=== PATIENT | female | born 1990 | race Caucasian/White ===

== ENCOUNTER 2019-04-27 02:45 | Observation (INO) | payer SELFPAY ==
[2019-04-26 16:33] VITALS: BMI 33.7
[2019-04-26 17:13] LABS: Protein, Urine (Random) 12.6 mg/dL (<11.9); Protein:Creat Ratio 129 mg/g CRE (0-200)
--- NOTE | 2019-04-26 17:35 | US_ITS ---
STUDY: SECOND AND THIRD TRIMESTER OBSTETRICAL ULTRASOUND - TWIN REASON FOR EXAM: Female, 28 years old. LMP: Unknown. TECHNIQUE: Transabdominal TECHNICAL QUALITY: Adequate. COMPARISON: None. FINDINGS: There are two intrauterine fetuses. The amniotic membrane cannot be visualized. There is a normal amniotic fluid volume within each amniotic sac. The uterine wall is normal. The cervix was not visualized. Fetus a is in breech presentation tilted toward the maternal left. A grade 2 placenta is noted. a heart rate is 128 bpm. The TEETEE is within normal limits. The largest measured fluid pocket is 3.6 x 3.3 cm. The combined TEETEE is 13.07 cm. There is a posterior not low lying placenta. FETUS A BIOMETRY: BPD: 8.58 cm: 34 weeks, 5 days HC: 31.78 cm: 35 weeks, 6 days AC: 33.19 cm: 37 weeks, 1 days FL: 6.97 cm: 35 weeks, 6 days CI: 78% FL/BPD: 77% FL/AC: 21% HC/AC: 1.03 age by current US: 36 weeks, 0 days. SRI by current US: 05/24/2019. Estimated weight: 2909 grams, +/- 425 grams, 28 %. Age by LMP: 37 weeks, 4 days. SRI by LMP: 05/13/2019. FETUS B BIOMETRY: Fetus B is in cephalic presentation. Fetus B heart rate is 146 bpm. There is an anterior not low lying placenta. The placenta is grade 2. BPD: 8.89 cm: 36 weeks, 0 days HC: 33.81 cm: 38 weeks, 6 days AC: 32.87 cm: 36 weeks, 6 days FL: 6.3 cm: 35 weeks, 1 days CI: 78% FL/BPD: 77% FL/AC: 21% HC/AC: 1.03 age by current US: 36 weeks, 5 days. SRI by current US: 05/19/2019. Estimated weight: 2946 grams, +/- 430 grams, 31 %. Age by LMP: 37 weeks, 4 days. SRI by LMP: 05/13/2019. US/OB Limited With Biometrics IMPRESSION: Twin uterine as detailed above. Electronically Signed: Eliot Crespo MD at 21:20 EDT , Service support ,
[2019-04-26 18:02] VITALS: BMI 33.7
[2019-04-26 18:22] LABS: Mucous, Urine 0 SEEN /hpf (<or=2+); Red Blood Cells-Urine 0 SEEN /hpf (0-5)
[2019-04-26 18:27] LABS: Absolute Lymphocyte Count 1.43 X10^3/uL (0.83-4.51); Absolute Neutrophil Count 7.2 X10^3/uL (2.0-7.7); Basophil# 0.01 X10^3/uL; Basophil% 0.1 % (0-1); Eosinophil# 0.03 X10^3/uL; Eosinophils% 0.3 % (0-5); Hematocrit 37.7 % (37-47); Hemoglobin 11.9 g/dL (12.0-15.0); Lymphocyte # 1.43 X10^3/ul (4.0); Lymphocyte % 15.5 % (19-41); Mean Corp Hgb Conc 31.6 g/dL (32-36); Mean Corpuscular Hgb 28.1 pg (27.0-32.0); Mean Corpuscular Volume 88.9 fL (81-99); Mean Platelet Vol. 10.8 fl (6.2-12.0); Monocyte# 0.55 X10^3/uL; Monocyte% 5.9 % (0-10); NRBC Flagged by Analyzer 0 % (0-5); Neutrophil # 7.19 X10^3/uL (2.7-7.7); Neutrophil % 77.8 % (47-70); POSITIVE MORPHOLOGY YES; Platelet Count 182 K/mm3 (150-450); RBC Distribution Width CV 20.1 % (11.6-14.6); RBC Distribution Width SD 64.3 fl (35.1-43.9); Red Blood Count 4.24 M/mm3 (4.2-5.4); White Blood Count 9.3 K/mm3 (4.4-11.0)
[2019-04-26 18:29] LABS: Differential Indicated SCAN CRITERIA MET
[2019-04-26 18:30] LABS: Color, Urine Yellow (Yellow); Glucose, Dipstick Normal (Normal); Ketone-Dipstick 50 mg/dl (Negative); Leukocyte Esterase-Dipstick 25 /ul (Negative); Nitrite-Dipstick Negative (Negative); Occult Blood-Urine Negative /ul (Negative); Protein-Dipstick 15 mg/dl (Negative); Urine Bilirubin Dipstick Negative (Negative); Urine Clarity Sl. Cloudy (Clear); Urine Urobilinogen Normal (Normal)
[2019-04-26 18:34] LABS: International Normalized Ratio 0.9; Prothrombin Time (Protime)PT. 12.3 SECONDS (11.7-14.9)
[2019-04-26 18:35] LABS: Partial Thromboplast Time 25.1 Seconds (24.1-36.2)
[2019-04-26 18:48] LABS: Bacteria 1+ /hpf (None Seen); Differential Comment SCANNED; Squamous Epithelial Cells - UA 10-25 SEEN /hpf (5-10); White Blood Cells 0-5 SEEN /hpf (0-5)
[2019-04-26 19:00] LABS: AST(SGOT) 14 U/L (15-37); Alanine Aminotransfer ALT/SGPT 11 U/L (13-56); Creatinine, Serum 0.74 mg/dL (0.55-1.02); EST Glomerular Filtration Rate 100 mL/min (>60); Est Glom Filt Rate - Afr Amer 121 mL/min (>60); Estimated Creatinine Clearance 123.49 ml/min; Uric Acid 6.9 mg/dL (2.6-6.0)
[2019-04-26 19:21] LABS: Rubella IgG 127.8 IU/mL
[2019-04-26 20:05] LABS: Group B Strep DNA By PCR Negative (Negative); Internal Control PASS; Probe Check PASS; Specimen Processing Control PASS
[2019-04-26] MEDS: Betamethasone/Betamethasone 30 MG/5 ML Vial 12 MG IM (20:14)
[2019-04-26 21:58] LABS: Chlamydia Trachomatis by PCR Negative (Negative); Neisserai gonorrhoeae by PCR Negative (Negative); Probe Check PASS; Sample Adequacy Control PASS; Specimen Processing Control PASS
--- NOTE | 2019-04-27 02:42 | PCM.HPOB.BLA ---
- Problem List (1) Dichorionic diamniotic twin in third trimester Status: Acute (2) Gestational hypertension affecting fifth Status: Acute (3) Limited care in third trimester Status: Acute (4) Multiple gestation with one or more malpresentations in third trimester Status: Acute History and Physical Date of Admission: 04/26/19 4815 Documentfor Visit Date: 04/26/19 Intake Vital Signs 04/26/19 Height 5 ft 10 in 04/26/19 Weight: 235 lb 04/26/19 Body Mass Index (BMI) 33.7 04/26/19 Blood Pressure 142/90 H Intake Visit Reasons: 36 WK OB (twins), Yue Negron pt, Ok per SM Chief Complaint: est ob, Yue Negron 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 Is patient in pain?: No Allergies No Known Allergies Allergy (Verified 04/26/19 22:55) Medications ferrous sulfate 325 mg (65 mg iron) tablet 325 mg PO DAILY 04/26/19 [History Confirmed 04/26/19] Last Menstral Period: 08/06/18 Zika: Zika virus screening: Negative [facility] Family History (Updated 04/26/19 @ 16:37 by Anu Obrien) Grandmother Heart disease Myocardial infarction Social History (Updated 04/27/19 @ 02:42 by Suellen Barrientos MD) Smoking Status: Never smoker alcohol intake: never substance use type: does not use what type of physical activity do you participate in: walking seatbelt use: always do you feel safe at home: Yes HPI 36 WK OB (twins), Yue Negron pt, Ok per SM: Details: RENETTA BENAVIDES is a 28 year old who presents for routine OB visit. she is transferring care here due to twins and malpresentation. she denies any bleeding or lof. it was previously unknown for her to be with twins. she is fairly sure of her LMP but not absolute. OB Visit SRI Calculator Estimated Delivery Date Method Current WG Current Estimate 05/13/19 LMP (Certain) 37w 5d # 2 Expected Delivery Route/Plan LTCS for Breech/Trv Specific Issue/Plans flu vaccine: declined tdap vaccine: didn't receive rhogam: na LARC form signed: Problem list reviewed and updated with the most current plan of care details and appropriate orders placed. Relevant counseling for the gestational age provided. Continue routine care and follow up unless otherwise noted in visit notes/problem list details Initial Weight: Not Recorded Date EGA Weight BP Urine Prot Glucose FHR FuHt Pres Mov CTX Dilation Effaced St Visit Note 04/26/19 37w 4d 235 lb 142/90 Negative Negative A 130 B 140 A Breech B Transverse A B A B A SAMI twins- elevated bp today. recommend evaluation on l and d. B Visit Notes Visit Date: 04/26/19 SAMI twins- elevated bp today. recommend evaluation on l and d. Suellen Barrientos MD on 04/26/19 Diagnostics Diagnostics Diagnostics Blood Type O POSITIVE 04/26/19 Antibody Screen NEGATIVE 04/26/19 HIV 1&2 Antibody Pending 04/26/19 Group B Strep DNA Negative (Negative) 04/26/19 Rubella IgG Antibody 127.8 IU/mL 04/26/19 Hgb 11.9 g/dL (12.0-15.0) L 04/26/19 Hct 37.7 % (37-47) 04/26/19 RPR Pending 04/26/19 Details: HIV: Urine Culture: Sequential Screen: NIPT Screen: ROS Const Reports system reviewed and no additional complaints, except as docu Card Reports system reviewed and no additional complaints, except as docu Resp Reports system reviewed and no additional complaints, except as docu GI Reports system reviewed and no additional complaints, except as docu, Reports nausea Reports system reviewed and no additional complaints, except as docu Musc Reports system reviewed and no additional complaints, except as docu Exam Const General: cooperative, healthy appearing, comfortable, anxious [facility] Head: normal to inspection Nose: external nose normal Face and sinus: normal facial exam Neck Neck: normal visual inspection, full ROM, no lymphadenopathy Thyroid: thyroid normal Chest Chest palpation & inspection: normal inspection of the chest Resp Effort & Inspection: normal respiratory effort GI Inspection: normal to inspection Palpation: soft, other (gravid uterus) Other: Cervical Exam: Extrem General: pedal edema Results [id number] Office Urine Glucose Negative Last Edit by Anu Obrien on 04/26/19 16:52 Office Urine Protein Negative Last Edit by Anu Obrien on 04/26/19 16:52 Assessment & Plan Problems 1. Gestational hypertension affecting fifth O13.9; O09.40 2. Dichorionic diamniotic twin in third trimester O30.043 3. Limited care in third trimester O09.33 4. Multiple gestation with one or more malpresentations in third trimester O30.93; O32.9XX0 Plan plan evaluation on l and d- admit for monitoring and labs. ultrasound evaluation of twins showing they are measuring 36 and 36w5d in malpresentation, discussed with infant caregiver and recommend celestone for late care with borderline presentation, plan delivery after 2 doses of bmz if remains stable. plan LTCS. Orders Orders: POC Urinalysis 2 Dip (Clinic) 04/26/19 Comprehensive Metabolic Profil 04/26/19 O16.9 CBC W/Diff, Automated 04/26/19 O16.9 Protein+Creatinine Ratio,Urine 04/26/19 O16.9 Coding Level of Care Code Off vis,new,level 4 Diagnoses Gestational hypertension affecting fifth O13.9; O09.40 Dichorionic diamniotic twin in third trimester O30.043 Limited care in third trimester O09.33 Multiple gestation with one or more malpresentations in third trimester O30.93; O32.9XX0 Renetta Benavides 28 F 1990 5ft 10in 235lb BSA:2.24m? BMI Percentile:33.7% Visit Date: 04/26/19 Room 2 Search Chart Onset Estimated Delivery Date Based on LMP (Certain) Current WG Number No data to display Medical History No Medical Problems Surgical History No Surgical Problems Family History Heart disease Grandmother Myocardial infarction Grandmother Social History what type of physical activity do you participate in walking Smoking Status Never smoker alcohol intake never substance use type does not use seatbelt use always do you feel safe at home Yes [place] 320 Problems Gestational hypertension affecting fifth Dichorionic diamniotic twin in third trimester Limited care in third trimester Multiple gestation with one or more malpresentations in third trimester Plan
[2019-04-27 10:30] LABS: HIV - WCH Non-Reactive (Nonreactive); Hepatitis B Surface Antigen Non-Reactive (Nonreactive)
[2019-04-27] MEDS: Betamethasone/Betamethasone 30 MG/5 ML Vial 12 MG IM (12:03)
[2019-04-30 01:54] LABS: Rapid Plasmin Reagin (RPR) NONREACTIVE (NONREACTIVE)
== END 2019-04-27 12:34 | disposition home or self-care (01) ==
LOC: WPOUT 10:19
PROVIDERS: Admitting Provider Obstetrics & Gynecology; Referring Provider Obstetrics & Gynecology; Visit Provider Obstetrics & Gynecology
PROC: (CPT 59514; principal; 2019-04-28 12:15)
DX: O30.043 Twin pregnancy, dichorionic/diamniotic, third trimester (principal); Z3A.37 37 weeks gestation of pregnancy; O16.3 Unspecified maternal hypertension, third trimester; O09.33 Supervision of pregnancy with insufficient antenatal care, third trimester; O32.9XX0 Maternal care for malpresentation of fetus, unspecified, not applicable or unspecified
CPT/HCPCS: 36415; 59025; 59050; 76816; 81001; 82565; 82570; 84156; 84450; 84460; 84550; 85025; 85610; 85730; 86592; 86703; 86762; 86850; 86900; 86901; 87081; 87340; 87491; 87591; 87653; 96372; 99218; G0378; J0702

== ENCOUNTER 2019-04-28 09:49 | Inpatient (IN) | payer SELFPAY ==
[2019-04-26 18:02] VITALS: BMI 33.7
[2019-04-28] VITALS (19 sets, daily range): BP systolic 119–143; BP diastolic 56–87; PULSE 57–86; RESP 14–21; TEMP 36.3–37.1; O2SAT 97–100; BMI 34.0
[2019-04-28] MEDS: Lactated Ringers 1,000 ML 999 ML IV (10:35)
[2019-04-28 10:51] LABS: Absolute Lymphocyte Count 1.46 X10^3/uL (0.83-4.51); Absolute Neutrophil Count 8.7 X10^3/uL (2.0-7.7); Basophil# 0.02 X10^3/uL; Basophil% 0.2 % (0-1); Hematocrit 37.4 % (37-47); Hemoglobin 11.6 g/dL (12.0-15.0); Lymphocyte # 1.46 X10^3/ul (4.0); Lymphocyte % 13.2 % (19-41); Mean Corpuscular Hgb 27.4 pg (27.0-32.0); Mean Corpuscular Volume 88.4 fL (81-99); Monocyte# 0.71 X10^3/uL; Monocyte% 6.4 % (0-10); NRBC Flagged by Analyzer 0 % (0-5); Neutrophil # 8.69 X10^3/uL (2.7-7.7); Neutrophil % 78.5 % (47-70); POSITIVE MORPHOLOGY YES; Platelet Count 194 K/mm3 (150-450); RBC Distribution Width CV 20.3 % (11.6-14.6); RBC Distribution Width SD 64.3 fl (35.1-43.9); Red Blood Count 4.23 M/mm3 (4.2-5.4); White Blood Count 11.1 K/mm3 (4.4-11.0)
[2019-04-28 10:53] LABS: Differential Indicated SCAN CRITERIA MET
[2019-04-28 11:29] LABS: Anisocytosis 2+; Crenated RBC 1+
[2019-04-28] MEDS: Lactated Ringers 1,000 ML 150 ML IV (11:37)
--- NOTE | 2019-04-28 11:55 | HP.PCM_ITS ---
- Problem List (1) Dichorionic diamniotic twin in third trimester Status: Acute (2) Gestational hypertension affecting fifth Status: Acute (3) Limited care in third trimester Status: Acute (4) Multiple gestation with one or more malpresentations in third trimester Status: Acute History and Physical Date of Admission: 04/28/19 LIVE [facility] H&P - OBGYN (Blank) Patient Name: RENETTA BENAVIDES Date of : [birth year] Patient Status: Observation Attending Provider: Suellen Barrientos Date: 04/27/19 02:42 Initialization Date: 04/27/19 02:42 Addendum entered and electronically signed by Suellen Barrientos MD 04/27/19 18:05: Code Visit patient stable, bps normal to mildly elevated. second dose of celestone given and will discharge home and fu tomorrow for primary . OBSV E&M: 74504 Observ/hosp same date L3 Original Note: - Problem List (1) Dichorionic diamniotic twin in third trimester Status: Acute (2) Gestational hypertension affecting fifth Status: Acute (3) Limited care in third trimester Status: Acute (4) Multiple gestation with one or more malpresentations in third trimester Status: Acute History and Physical Date of Admission: 04/26/19 4815 Documentfor Visit Date: 04/26/19 Intake Vital Signs 04/26/19 Height 5 ft 10 in 04/26/19 Weight: 235 lb 04/26/19 Body Mass Index (BMI) 33.7 04/26/19 Blood Pressure 142/90 H Intake Visit Reasons: 36 WK OB (twins), Yue Negron pt, Ok per SM Chief Complaint: est ob, 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 Is patient in pain?: No Allergies No Known Allergies Allergy (Verified 04/26/19 22:55) Medications ferrous sulfate 325 mg (65 mg iron) tablet 325 mg PO DAILY 04/26/19 [History Confirmed 04/26/19] Last Menstral Period: 08/06/18 Zika: Zika virus screening: Negative [facility] PFS Family History (Updated 04/26/19 @ 16:37 by Anu Obrien) Grandmother Heart disease Myocardial infarction Social History (Updated 04/27/19 @ 02:42 by Suellen Barrientos MD) Smoking Status: Never smoker alcohol intake: never substance use type: does not use what type of physical activity do you participate in: walking seatbelt use: always do you feel safe at home: Yes HPI 36 WK OB (twins), Yue Negron pt, Ok per SM: Details: RENETTA BENAVIDES is a 28 year old who presents for routine OB visit. she is transferring care here due to twins and malpresentation. she denies any bleeding or lof. it was previously unknown for her to be with twins. she is fairly sure of her LMP but not absolute. OB Visit SRI Calculator Estimated Delivery Date Method Current WG Current Estimate 05/13/19 LMP (Certain) 37w 5d # 2 Expected Delivery Route/Plan LTCS for Breech/Trv Specific Issue/Plans flu vaccine: declined tdap vaccine: didn't receive rhogam: na LARC form signed: Problem list reviewed and updated with the most current plan of care details and appropriate orders placed. Relevant counseling for the gestational age provided. Continue routine care and follow up unless otherwise noted in visit notes/problem list details Initial Weight: Not Recorded Date EGA Weight BP Urine Prot Glucose FHR FuHt Pres Mov CTX Dilation Effaced St Visit Note 04/26/19 37w 4d 235 lb 142/90 Negative Negative A 130 B 140 A Breech B Transverse A B A B A SAMI twins- elevated bp today. recommend evaluation on l and d. B Visit Notes Visit Date: 04/26/19 SAMI twins- elevated bp today. recommend evaluation on l and d. Suellen Barrientos MD on 04/26/19 Diagnostics Diagnostics Diagnostics Blood Type O POSITIVE 04/26/19 Antibody Screen NEGATIVE 04/26/19 HIV 1&2 Antibody Pending 04/26/19 Group B Strep DNA Negative (Negative) 04/26/19 Rubella IgG Antibody 127.8 IU/mL 04/26/19 Hgb 11.9 g/dL (12.0-15.0) L 04/26/19 Hct 37.7 % (37-47) 04/26/19 RPR Pending 04/26/19 Details: HIV: Urine Culture: Sequential Screen: NIPT Screen: ROS Const Reports system reviewed and no additional complaints, except as docu Card Reports system reviewed and no additional complaints, except as docu Resp Reports system reviewed and no additional complaints, except as docu GI Reports system reviewed and no additional complaints, except as docu, Reports nausea Reports system reviewed and no additional complaints, except as docu Musc Reports system reviewed and no additional complaints, except as docu Exam Const General: cooperative, healthy appearing, comfortable, anxious [place] Head: normal to inspection Nose: external nose normal Face and sinus: normal facial exam Neck Neck: normal visual inspection, full ROM, no lymphadenopathy Thyroid: thyroid normal Chest Chest palpation & inspection: normal inspection of the chest Resp Effort & Inspection: normal respiratory effort GI Inspection: normal to inspection Palpation: soft, other (gravid uterus) Other: Cervical Exam: Extrem General: pedal edema Results [id number] Office Urine Glucose Negative Last Edit by Anu Obrien on 04/26/19 16:52 Office Urine Protein Negative Last Edit by Anu Obrien on 04/26/19 16:52 Assessment & Plan Problems 1. Gestational hypertension affecting fifth O13.9; O09.40 2. Dichorionic diamniotic twin in third trimester O30.043 3. Limited care in third trimester O09.33 4. 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 plan LTCS. Orders Orders: POC Urinalysis 2 Dip (Clinic) 04/26/19 Comprehensive Metabolic Profil 04/26/19 O16.9 CBC W/Diff, Automated 04/26/19 O16.9 Protein+Creatinine Ratio,Urine 04/26/19 O16.9 Coding Level of Care Code Off vis,new,level 4 Diagnoses Gestational hypertension affecting fifth O13.9; O09.40 Dichorionic diamniotic twin in third trimester O30.043 Limited care in third trimester O09.33 Multiple gestation with one or more malpresentations in third trimester O30.93; O32.9XX0 Renetta Benavides 28 F 1990 5ft 10in 235lb BSA:2.24m? BMI Percentile:33.7% Visit Date: 04/26/19 Room 2 Search Chart Onset Estimated Delivery Date Based on LMP (Certain) Current WG Number No data to display Medical History No Medical Problems Surgical History No Surgical Problems Family History Heart disease Grandmother Myocardial infarction Grandmother Social History what type of physical activity do you participate in walking Smoking Status Never smoker alcohol intake never substance use type does not use seatbelt use always do you feel safe at home Yes [place] 320 Problems Gestational hypertension affecting fifth Dichorionic diamniotic twin in third trimester Limited care in third trimester Multiple gestation with one or more malpresentations in third trimester Plan LTCS for delivery
--- NOTE | 2019-04-28 11:56 | OP.PCM_ITS ---
Problem List (1) Dichorionic diamniotic twin in third trimester Status: Acute (2) Gestational hypertension affecting fifth Status: Acute (3) Limited care in third trimester Status: Acute (4) Multiple gestation with one or more malpresentations in third trimester Status: Acute Delivery Classification: Scheduled Final SRI: 05/13/19 Gestational age: 37 Weeks and 6 Days Type of Anesthesia:: Spinal Special Medications: none Implants Used: none Date of Procedure: 04/28/19 Pre-Operative Diagnosis: gestational hypertension twins malpresentation Post-Operative Diagnosis: same Indications for : Malpresentation, Multiple Gestation Description of Procedure: The patient is a 28-year-old at 37 and 6 with gestational hypertension di-di-twins presented for primary secondary to presentation . Spinal anesthesia was placed without difficulty. Daly catheter was placed. The patient was placed in the dorsal supine position with leftward tilt. Patient was prepped and draped in the normal sterile fashion. Pfannenstiel skin incis ion was made with the scalpel and carried through to the underlying layer of fascia with the scalpel. Fascia was nicked in the midline and the incision extended laterally. The rectus bellies were dissected off superiorly and inferiorly with out complication both sharply and bluntly. The peritoneum was entered digitally. The incision was stretched and a low transverse uterine incision was made with the scalpel. Baby A's buttocks was delivered and was noted to be female followed by the right and left arms are loose nuchal cord x1 was reduced and the head delivered without complication. Delayed cord clamping was employed and then the cord was clamped and cut and the infant was taken off to waiting nurse. Membranes were ruptured on baby B which was noted to be transverse but it was converted to breech prior to rupture of membranes. Infant's feet and buttocks were delivered without complication followed by sweeping the anterior and posterior arms and flexing the head and delivering atraumatically. The cord was clamped and cut and the infant was handed off to awaiting nurse. The placenta was delivered spontaneously immediately following and was noted to be intact and have a three-vessel cord. The uterus was exteriorized cleared of all clots and debris, and the incision was closed in a double layer closure using #1 Monocryl. The ovaries and fallopian tubes were noted to be within normal limits. The uterus was returned to the maternal abdomen and gutters were cleared of all clots and debris. The peritoneum was closed with 3-0 Monocryl in a running fashion. figure of eight 1-0 monocryl stitch in the muscle was placed. Gloves were changed prior to fascial closure. Fascia was closed with 0 PDS in a running fashion. Subcutaneous tissue was copiously irrigated and the skin was closed with 3-0 Monocryl in a subcuticular fashion. Mepilex dressing was applied without complication. Patient was taken to recovery in stable condition. Amniotic Membrane Rupture Type: Artificial Amniotic Fluid Description: Clear Placenta Disposition: [facility] Cord Entanglement: Around neck x 1, loose Nuchal Cord Compression: With compression Cord Vessel Description: 3 Vessels Esitmated Blood Loss (ml): 1500 Gender: Female Delayed cord clamping: Yes Antibiotic Given: Ancef 2 grams IV x1 Pt instructed on risks of surgery: Bleeding, Anesthesia Risks, Infection Complications: None Baby B - Information Amniotic Membrane Rupture Type: Artificial Presentation: [place] Breech - Operative Information Cord Entanglement: None Cord Vessel Description: 3 Vessels B gender: Male Multi Select Codes - Urinary/Genital Urinary/Genital CPT Codes: 18410 delivery+ Care([facility]) - twins
[2019-04-28] MEDS: Sodium Citrate/Citric Acid 30 ML UDC PO (11:59)
[2019-04-28] MEDS: Cefazolin 2 GM in 0.9% Normal Saline 100 ML IV (12:08)
[2019-04-28] MEDS: Oxytocin 30 units/NS 500 ml 30 UNITS/500 ML IV.SOLN 167 UNITS IV (13:28)
[2019-04-28] MEDS: Lactated Ringers 1,000 ML 100 ML IV (16:43)
[2019-04-28] MEDS: Ketorolac 30 MG/ML Syringe IV (17:57)
[2019-04-28] MEDS: 0.9% Saline Lock 10 ML Syringe IV (17:57)
[2019-04-29] VITALS (12 sets, daily range): BP systolic 130–142; BP diastolic 73–85; PULSE 51–80; RESP 16–20; TEMP 36.4–37.2; O2SAT 97–99
[2019-04-29] MEDS: Ketorolac 30 MG/ML Syringe IV ×4 (00:04→19:35)
[2019-04-29 05:49] LABS: Hematocrit 26.8 % (37-47); Hemoglobin 8.4 g/dL (12.0-15.0); Mean Corp Hgb Conc 31.3 g/dL (32-36); Mean Corpuscular Hgb 27.8 pg (27.0-32.0); Mean Corpuscular Volume 88.7 fL (81-99); Mean Platelet Vol. 10.7 fl (6.2-12.0); Platelet Count 144 K/mm3 (150-450); RBC Distribution Width SD 63.8 fl (35.1-43.9); Red Blood Count 3.02 M/mm3 (4.2-5.4); White Blood Count 10.5 K/mm3 (4.4-11.0)
--- NOTE | 2019-04-29 06:24 | PCM.PN.OB ---
Subjective: doing well no complaints pain controlled no CP SOB N V ambulating well tolerating po lochia moderate, going well - Physical Exam General: Alert, Oriented x3 Vital Signs Temp Pulse Resp BP Pulse Ox 98.5 F 78 16 130/80 H 98 04/29/19 04:00 04/29/19 05:50 04/29/19 05:50 04/29/19 04:00 04/29/19 05:50 Oxygen Delivery Method Room Air Weight: 237 lb 3.478 oz Body Mass Index (BMI) 34.0 Intake and Output for Last 24 Hours 04/27/19 04/28/19 04/29/19 23:59 23:59 23:59 Intake Total 2367.5 / 2367.5 2033.33 / 2033.33 Output Total 250 / 250 1200 / 1200 Balance 2117.5 / 2117.5 833.33 / 833.33 Laboratory Tests Past 24 Hrs 04/28/19 04/28/19 04/29/19 10:35 10:35 05:40 WBC 11.1 H 10.5 RBC 4.23 3.02 L Hgb 11.6 L 8.4 L Hct 37.4 26.8 L MCV 88.4 88.7 MCH 27.4 27.8 MCHC 31.0 L 31.3 L RDW Std Deviation 64.3 H 63.8 H RDW Coeff of Yeyo 20.3 H 20.0 H Plt Count 194 144 L MPV 11.0 10.7 Immature Gran % (Auto) 1.700 H Neut % (Auto) 78.5 H Lymph % (Auto) 13.2 L Edwards % (Auto) 6.4 Eos % (Auto) 0.0 Baso % (Auto) 0.2 Absolute Neuts (auto) 8.7 H Absolute Lymphs (auto) 1.46 Nucleated RBC % 0 Anisocytosis 2+ Crenated Cell 1+ Blood Type O POSITIVE Antibody Screen NEGATIVE Medical Necessity - Tobacco Use Smoking Status: Never smoker Assessment/Plan All Active Problems (Last Reviewed 04/26/19 @ 16:37 by Anu Obrien) Multiple gestation with one or more malpresentations in third trimester (Acute) Limited care in third trimester (Acute) Dichorionic diamniotic twin in third trimester (Acute) Gestational hypertension affecting fifth (Acute) s/p LTCS PPD # 1 1. routine post care 2. breast feeding- support given 3. rh positive 4. rubella immune
[2019-04-29] MEDS: 0.9% Saline Lock 10 ML Syringe IV ×2 (19:35→19:39)
[2019-04-29] MEDS: Senna/Docusate Sodium 1 Tablet PO (20:27)
[2019-04-30 02:27] VITALS: BP 140/80; PULSE 73; RESP 18; TEMP 37.1; O2SAT 99
[2019-04-30] MEDS: Naproxen 250 MG Tablet PO ×2 (02:27→11:38)
--- NOTE | 2019-04-30 02:43 | DCINST_ITS ---
Discharge Diet: No Restrictions Discharge Activity: May Not Drive - for 2 weeks, May not drive while taking narcotic pain medications., May Shower, May Take a Tub Bath - in 7 days May resume sexual activity in: 4-6 weeks Lifting Restrictions: 20 pounds Additional Activity Instructions:: Nothing in the vagina for 4-6 weeks. You may return to work/school in 6 weeks. Call your doctor if your incision/area has: Continuous Slow Oozing, Sudden Increased Bleeding, Increased Pain/ Swelling, Increased Redness, Foul Smelling Discharge Call your doctor if you observe: Fever of 101 or Higher, Using more than one pad per hour - for 2 hours Suture Line Care: Avoid Pulling/Pushing, Avoid Pinching/Bending Cleanse incision/area with: Keep Dressing Clean & Dry Additional Instructions: If you experience any of the following, contact your healthcare provider. * Bleeding that soaks a pad every hour for 2 hours * Fever 100.4 or higher * Unrelieved incision or abdominal pain * Swelling, redness, discharge or bleeding from your incision or episiotomy site * Your incision begins to separate * Problems urinating (including inability to urinate or burning while urinating). * Visual changes * Severe headache * Flu-like symptoms * Pain or redness in one of both of your breasts * Pain, warmth, tenderness or swelling in your legs, especially the calf area * Frequent nausea and vomiting * Symptoms of depression or anxiety If you experience any of the following, call 911 or go to the nearest Emergency Room. * Chest pain * Problems breathing * Seizure activity * Partial or complete paralysis of a body part, slurred speech, weakness or drooping of the face, or a sudden inability to walk or hold your balance Allergies/Adverse Reactions: Allergies No Known Allergies Allergy (Verified 04/28/19 10:02) Medications to take at Discharge ferrous sulfate 325 mg (65 mg iron) tablet 325 mg PO DAILY 04/26/19 Naproxen [Naprosyn] 250 - 500 mg PO Q8H PRN PRN #30 tab 04/30/19 Oxycodone HCl/Acetaminophen [Percocet 5-325] 1 - 2 tablet PO Q4H PRN PRN 7 Days #15 tablet 04/30/19 The following prescriptions were given: Naproxen [Naprosyn] 250 - 500 mg PO Q8H PRN PRN #30 tab PRN Reason: MILD PAIN Transmission Status: Pending to [facility] Oxycodone HCl/Acetaminophen [Percocet 5-325] 1 - 2 tablet PO Q4H PRN PRN 7 Days #15 tablet PRN Reason: Pain Transmission Status: Sent to [facility] Follow-Up: Call to make an appointment with your doctor for an incision check in 1-2 weeks. You will also need a 6 week post- follow up appointment. Test results from this visit will be discussed in further detail at your follow- up appointment, if applicable. Please Follow Up With: Suellen Barrientos MD - Call to make an appointment for an incision check in 1-2 [phone] When: You will need a post- check in 6 weeks. Primary Care Physician: EMELIA GARNER [Other]
[2019-04-30 09:35] VITALS: BP 133/87; PULSE 82; RESP 16; TEMP 36.6
--- NOTE | 2019-04-30 10:15 | CASEMGMT ---
Social Work Brief Assessment - Labor and Delivery Unit Patient Address: [address] [place] [address] Phone number: [phone] Date of Referral/Notification: 04-30-2019 Time of Referral: 510 Referred By: Dr. Barrientos Reason for Referral: resources Date of Intervention: 04-30-2019 Time of Intervention: 1000 Informant: Medical record and mother of baby (MOB) Lynne Amaral; father of baby (FOB) Brennan Amaral also present. History: MOB is a 28 year old female from the [employer]. MOB is to FOB Brennan Amaral. MOB started with care with corrosion control technician Yue Negron, transferred to doctor and hospital based care after learning of twin gestation and breech presentation. MOB reports just found out 3 weeks ago about twin gestation. MOB's father is a twin. MOB is G4, P2 to 4 after delivery Baby A Corinna and Baby B Gustavo this admission. MOB with history of one early loss at 7 weeks gestation. Prior to this twin delivery via primary caesarian section, MOB's other deliveries were at home with corrosion control technician care. MOB and FOB have an almost 5 year old and a 2 year old at home. CHANNING is a business cash management clerk and reports to be home at 4 each day, so will be able to help out. MOB reports to have support from family in the area. MOB denies any history of depression or anxiety, no history in the family, and no reports of any substance use issues. No reports or indication of domestic violence issues, and upon admission MOB denied any safety or abuse issues. MOB denies any needs or concerns with reading, writing, or learning comprehension. Transportation is reported to be adequate with [employer] or hiring a school bus driver/teacher assistant. Family does have electricity and phones in the home. Assessment: MOB and FOB both pleasant and cooperative with transition social worker. MOB held normal eye contact, affect appropriate, speech within normal limits. MOB reports will have help from MOB's mother for a few days and then another family member for as long as needed. MOB reports to have all needed supplies including car seat, safe sleeping, clothing, diapers, wipes. MOB planning to breast feed but reports to be okay with formula feeding as well if needed. MOB denies any needs or concerns for home going, and reports to feel her forbes with both babies is coming along, similarly to how she felt with her other children. FOB presents as supportive and acknowledging that MOB may need some extra support at home with twins and 2 additional young and active children. MOB declines any type of government assistance but accepting of resources lists offered. Also accepting of depression packet. No concerns voiced by nursing staff regarding care of babies, or parent/child interactions. Plan: MOB and babies discharging home today. [facility] resources packet given. depression packet given as well. No other needs requested or indicated. -CORAL Campbell, BACK ORDER CLERK
[2019-04-30] MEDS: Acetaminophen 500 MG Tablet 1000 MG PO (14:01)
[2019-04-30 14:31] VITALS: BP 138/89; RESP 14; TEMP 36.7
== END 2019-04-30 15:00 | disposition home or self-care (01) | DRG 788 ==
PROVIDERS: Admitting Provider Obstetrics & Gynecology; Referring Provider Obstetrics & Gynecology; Visit Provider Obstetrics & Gynecology
DX: O32.8XX2 Maternal care for other malpresentation of fetus, fetus 2 (principal); O30.043 Twin pregnancy, dichorionic/diamniotic, third trimester; Z37.2 Twins, both liveborn; O13.4 Gestational [pregnancy-induced] hypertension without significant proteinuria, complicating childbirth; Z3A.37 37 weeks gestation of pregnancy; O69.81X1 Labor and delivery complicated by cord around neck, without compression, fetus 1
CPT/HCPCS: 59050; 85025; 85027; 86850; 86900; 86901; 99218; J7120; A4216; G0378

== ENCOUNTER → 2019-06-11 17:05 | Outpatient (CLI) | payer SELFPAY ==
[2019-06-11 14:09] VITALS: BMI 34.0
[2019-06-16 13:24] LABS: HPV Reflexed? NOT INDICATED
== END ==
PROVIDERS: Referring Provider Obstetrics & Gynecology; Visit Provider Obstetrics & Gynecology
DX: Z12.4 Encounter for screening for malignant neoplasm of cervix (principal)
CPT/HCPCS: 88175; G0145

== ENCOUNTER → 2022-10-10 | Outpatient (CLI) | payer SELFPAY ==
[2022-10-10 12:59] LABS: Protein, Urine (Random) < 6.0 mg/dL (<11.9)
[2022-10-12 10:08] LABS: Chlamydia By Nucleic Acid AMP Negative (Negative)
[2022-10-12 12:30] LABS: Gonococcus By Nucleic Acid AMP Negative (Negative)
[2022-10-17 09:26] LABS: HPV APTIMA, High Risk Negative (Negative)
== END | disposition home or self-care (01) ==
PROVIDERS: Referring Provider Advanced Practice Midwife; Visit Provider Advanced Practice Midwife
DX: Z34.90 Encounter for supervision of normal pregnancy, unspecified, unspecified trimester (principal); Z87.59 Personal history of other complications of pregnancy, childbirth and the puerperium
CPT/HCPCS: 82570; 84156; 87077; 87086; 87088; 87186; 87491; 87591; 87624; 88175; G0145

== ENCOUNTER → 2022-11-06 | Outpatient (CLI) | payer SELFPAY ==
[2022-11-06 11:24] LABS: Absolute Lymphocyte Count 1.83 X10^3/uL (0.83-4.51); Absolute Neutrophil Count 9.5 X10^3/uL (2.0-7.7); Basophil# 0.02 X10^3/uL; Basophil% 0.2 % (0-1); Eosinophils% 0.8 % (0-5); Hematocrit 35.6 % (37-47); Hemoglobin 11.6 g/dL (12.0-15.0); Lymphocyte # 1.83 X10^3/ul (0.83-4.51); Lymphocyte % 14.9 % (19-41); Mean Corp Hgb Conc 32.6 g/dL (32-36); Mean Corpuscular Hgb 30.1 pg (27.0-32.0); Mean Corpuscular Volume 92.2 fL (81-99); Monocyte# 0.73 X10^3/uL; NRBC Flagged by Analyzer 0 % (0-5); Neutrophil # 9.51 X10^3/uL (2.7-7.7); Neutrophil % 77.5 % (47-70); Platelet Count 266 K/mm3 (150-450); RBC Distribution Width CV 13.7 % (11.6-14.6); RBC Distribution Width SD 46.3 fl (35.1-43.9); Red Blood Count 3.86 M/mm3 (4.2-5.4); White Blood Count 12.3 K/mm3 (4.4-11.0)
[2022-11-06 12:02] LABS: ALB/GLOB Ratio 0.9 RATIO (0.9-2.4); AST(SGOT) 11 U/L (15-37); Alanine Aminotransfer ALT/SGPT 15 U/L (13-56); Albumin, Serum 3.3 g/dL (3.2-5.0); Alkaline Phosphatase 61 U/L (45-117); Anion Gap 6 (5-15); BUN 14 mg/dL (7-18); BUN/Creat Ratio 15.9 RATIO (10-20); Calcium,Total 9.1 mg/dL (8.5-10.1); Chloride 108 mmol/L (98-107); Creatinine, Serum 0.88 mg/dL (0.55-1.02); EST Glomerular Filtration Rate 79 mL/min (>60); Est Glom Filt Rate - Afr Amer 96 mL/min (>60); Globulin 3.7 g/dL (2.2-4.2); Glucose 77 mg/dL (74-106); Potassium 4.2 mmol/L (3.5-5.1); Sodium Level 136 mmol/L (136-145)
[2022-11-06 12:31] LABS: HIV - WCH Non-Reactive (Nonreactive); Hepatitis B Surface Antigen Non-Reactive (Nonreactive); Hepatitis C Antibody Non-Reactive (Nonreactive); Rubella IgG Reactive (Nonreactive); Syphilis Antibodies Non-reactive
== END | disposition home or self-care (01) ==
PROVIDERS: Referring Provider Advanced Practice Midwife; Visit Provider Advanced Practice Midwife
DX: Z34.90 Encounter for supervision of normal pregnancy, unspecified, unspecified trimester (principal); Z87.59 Personal history of other complications of pregnancy, childbirth and the puerperium
CPT/HCPCS: 36415; 80053; 85025; 86703; 86762; 86780; 86803; 86850; 86900; 86901; 87340

== ENCOUNTER → 2022-12-04 | Outpatient (CLI) | payer SELFPAY | END | disposition home or self-care (01) | PROVIDERS: Referring Provider Obstetrics & Gynecology; Visit Provider Obstetrics & Gynecology | DX: O23.40 Unspecified infection of urinary tract in pregnancy, unspecified trimester (principal); Z3A.00 Weeks of gestation of pregnancy not specified | CPT/HCPCS: 87077; 87086; 87088; 87186 ==

== ENCOUNTER → 2023-01-07 | Outpatient (CLI) | payer SELFPAY ==
--- NOTE | 2023-01-07 15:17 | US_ITS ---
EXAM: US SECOND OR THIRD TRIMESTER ADDITIONAL GESTATION, TRANSABDOMINAL AND TRANSVAGINAL CLINICAL INDICATION: anatomy scan-TWINS anatomy scan-TWINS TECHNIQUE: Transabdominal obstetrical ultrasound with image documentation of the maternal pelvis and an additional second or third trimester . Transvaginal imaging of the cervix was also performed. COMPARISON: None FINDINGS: ADDITIONAL GESTATION: FETUS: There is a twin dichorionic diamniotic intrauterine gestation. GENDER: Both fetuses have male genitalia. HEART RATE: Baby A heart rate 153 bpm. Baby B heart rate 153 bpm. PRESENTATION: Baby A variable presentation. Baby B variable presentation. PLACENTA: Baby A posterior placenta, not low lying, grade 1 in maturation. Baby B anterior placenta which is not low lying. Grade 1 in maturation. No placenta previa. No abruption. AMNIOTIC FLUID: Baby A largest amniotic fluid pocket 8.3 cm. Baby B largest amniotic fluid pocket 5.4 cm. ANATOMY: Both fetuses lateral ventricles, choroid plexus, cerebellum, cisterna magna, and face, nose, and lips were visualized. Both fetuses four-chamber heart was visualized. Both fetuses diaphragm, stomach, abdominal wall, cord insertion, three-vessel cord, kidneys, and bladder were visualized. Both fetuses spine was visualized. Both fetuses upper and lower extremities were visualized. BIOMETRICS of the ADDITIONAL GESTATION: GESTATIONAL AGE: Baby A AC: 17.97 cm. This corresponds with gestational age of 22 weeks, 6 days. Baby A FL: 3.75 cm. This corresponds with gestational age of 22 weeks, 0 days. Baby A estimated gestational age 21 weeks, 1 day. Estimated date of delivery 05/19/2023. SRI: See above. EFW: Baby A estimated weight 496 g +/- 74 g. A BB estimated weight 470 g +/- 70 g. BPD: Baby A BPD 5.06 cm. This corresponds with a gestational age of 21 weeks, 2 days. Baby B BPD 5.09 cm. This corresponds with gestational age of 21 weeks, 3 days. HC: Baby A HC 19.89 cm. This corresponds with gestational age of 22 weeks, 0 days. Baby B HC 19.70 cm. This corresponds with gestational age of 21 weeks, 6 days. AC: Baby B AC 17.39 cm. This corresponds with gestational age of 22 weeks, 2 days. FL: Baby B FL 3.69 cm. This corresponds with gestational age of 21 weeks, 5 days. CERVIX: The cervix measures 4.8 cm in length and is closed. IMPRESSION: Viable twin diamniotic and dichorionic intrauterine gestation. No abnormalities are demonstrated. Electronically Signed: Cristian Jama MD at 6:45 EDT , EXAM: US SECOND OR THIRD TRIMESTER ADDITIONAL GESTATION, TRANSABDOMINAL AND TRANSVAGINAL CLINICAL INDICATION: anatomy scan-TWINS anatomy scan-TWINS TECHNIQUE: Transabdominal obstetrical ultrasound with image documentation of the maternal pelvis and an additional second or third trimester . Transvaginal imaging of the cervix was also performed. COMPARISON: None FINDINGS: ADDITIONAL GESTATION: FETUS: There is a twin dichorionic diamniotic intrauterine gestation. GENDER: Both fetuses have male genitalia. HEART RATE: Baby A heart rate 153 bpm. Baby B heart rate 153 bpm. PRESENTATION: Baby A variable presentation. Baby B variable presentation. PLACENTA: Baby A posterior placenta, not low lying, grade 1 in maturation. Baby B anterior placenta which is not low lying. Grade 1 in maturation. No placenta previa. No abruption. AMNIOTIC FLUID: Baby A largest amniotic fluid pocket 8.3 cm. Baby B largest amniotic fluid pocket 5.4 cm. ANATOMY: Both fetuses lateral ventricles, choroid plexus, cerebellum, cisterna magna, and face, nose, and lips were visualized. Both fetuses four-chamber heart was visualized. Both fetuses diaphragm, stomach, abdominal wall, cord insertion, three-vessel cord, kidneys, and bladder were visualized. Both fetuses spine was visualized. Both fetuses upper and lower extremities were visualized. BIOMETRICS of the ADDITIONAL GESTATION: GESTATIONAL AGE: Baby A AC: 17.97 cm. This corresponds with gestational age of 22 weeks, 6 days. Baby A FL: 3.75 cm. This corresponds with gestational age of 22 weeks, 0 days. Baby A estimated gestational age 21 weeks, 1 day. Estimated date of delivery 05/19/2023. SRI: See above. EFW: Baby A estimated weight 496 g +/- 74 g. A BB estimated weight 470 g +/- 70 g. BPD: Baby A BPD 5.06 cm. This corresponds with a gestational age of 21 weeks, 2 days. Baby B BPD 5.09 cm. This corresponds with gestational age of 21 weeks, 3 days. HC: Baby A HC 19.89 cm. This corresponds with gestational age of 22 weeks, 0 days. Baby B HC 19.70 cm. This corresponds with gestational age of 21 weeks, 6 days. AC: Baby B AC 17.39 cm. This corresponds with gestational age of 22 weeks, 2 days. FL: Baby B FL 3.69 cm. This corresponds with gestational age of 21 weeks, 5 days. CERVIX: The cervix measures 4.8 cm in length and is closed. US/OB Anatomy w/ Transvaginal IMPRESSION: Viable twin diamniotic and dichorionic intrauterine gestation. No abnormalities are demonstrated. Electronically Signed: Cristian Jama MD at 6:44 EDT ,
== END | disposition home or self-care (01) ==
PROVIDERS: Referring Provider Obstetrics & Gynecology; Visit Provider Obstetrics & Gynecology
DX: O09.90 Supervision of high risk pregnancy, unspecified, unspecified trimester (principal); Z3A.00 Weeks of gestation of pregnancy not specified
CPT/HCPCS: 76805; 76810; 76817

== ENCOUNTER → 2023-02-11 | Outpatient (CLI) | payer SELFPAY ==
--- NOTE | 2023-02-11 11:58 | US_ITS ---
STUDY: SECOND AND THIRD TRIMESTER OBSTETRICAL ULTRASOUND - LIMITED REASON FOR EXAM: Female, 32 years old di di twins GROWTH . Twin A LMP: August 12, 2022. PRIOR ULTRASOUND: Comparison is made with prior study dated January 07, 2023. TECHNIQUE: Transabdominal TECHNICAL QUALITY: Adequate. FINDINGS: There is a single intrauterine fetus. The fetus is in an transverse lie with the head on the maternal left side. There is demonstrated cardiac activity with a heart rate of 155 bpm. There is a normal amniotic fluid volume. The largest amniotic fluid pocket measures 7.3 cm x 3.4 cm. The amniotic fluid index (TEETEE) is within normal limits. The placenta is posterior in location and is not low lying. There are Grade 1 placental changes. The cervix measures 4.5 cm in length. BIOMETRY: BPD: 6.85 cm: 27 weeks, 4 days HC: 25.17 cm: 27 weeks, 2 days AC: 23.58 cm: 27 weeks, 6 days FL: 5.1 cm: 27 weeks, 2 days Age by LMP: 26 weeks, 1 days. SRI by LMP: May 19, 2023. age by prior US: 26 weeks, 5 days. SRI by prior US: May 15, 2023. age by current US: 27 weeks, 2 days. SRI by current US: May 11, 2023. Estimated weight: 1117 grams, +/- 168 grams, 93 percentile. IMPRESSION: Twin A with a mean gestational age of 26 weeks and 5 days. The measurements obtained today fall within the normal expected range. Electronically Signed: Amado Lim MD at 14:50 EDT , STUDY: SECOND AND THIRD TRIMESTER OBSTETRICAL ULTRASOUND - TWIN REASON FOR EXAM: Female, 32 years old. LMP: di di twins GROWTH TECHNIQUE: Transabdominal TECHNICAL QUALITY: Adequate. COMPARISON: None. FINDINGS: FETUS B BIOMETRY: BPD: 6.8 cm: 27 weeks, 3 days HC: 25.63 cm: 27 weeks, 6 days AC: 22.93 cm: 27 weeks, 2 days FL: 5.09 cm: 27 weeks, 2 days CI: 76.5% FL/BPD: 74.8% FL/HC: FL/AC: 22.2% HC/AC: 1.12 age by current US: 27 weeks, 3 days. SRI by current US: May 10, 2023. Estimated weight: 1064 grams, +/- 160 grams, 85.4% age by prior US: 26 weeks, 4 days. SRI by previous US: May 16, 2023. Age by LMP: 26 weeks, 1 days. SRI by LMP: May 19, 2023. US/OB Limited With Biometrics IMPRESSION: Single live intrauterine gestation with a mean gestational age of 26 weeks and 4 days. The measurements obtained today fall within normal expected range. Electronically Signed: Amado Lim MD at 14:53 EDT ,
== END | disposition home or self-care (01) ==
LOC: OPUS 11:57
PROVIDERS: Referring Provider Obstetrics & Gynecology; Visit Provider Obstetrics & Gynecology
DX: O30.049 Twin pregnancy, dichorionic/diamniotic, unspecified trimester (principal); Z3A.00 Weeks of gestation of pregnancy not specified
CPT/HCPCS: 76816

== ENCOUNTER → 2023-02-25 | Outpatient (CLI) | payer SELFPAY ==
[2023-02-25 13:02] LABS: Absolute Lymphocyte Count 1.05 X10^3/uL (0.83-4.51); Absolute Neutrophil Count 7.9 X10^3/uL (2.0-7.7); Basophil# 0.01 X10^3/uL; Basophil% 0.1 % (0-1); Eosinophil# 0.05 X10^3/uL; Eosinophils% 0.5 % (0-5); Hematocrit 30.8 % (37-47); Hemoglobin 9.6 g/dL (12.0-15.0); Lymphocyte # 1.05 X10^3/ul (0.83-4.51); Lymphocyte % 10.9 % (19-41); Mean Corp Hgb Conc 31.2 g/dL (32-36); Mean Corpuscular Hgb 27.8 pg (27.0-32.0); Mean Corpuscular Volume 89.3 fL (81-99); Monocyte# 0.53 X10^3/uL; Monocyte% 5.5 % (0-10); NRBC Flagged by Analyzer 0 % (0-5); Neutrophil # 7.89 X10^3/uL (2.7-7.7); Neutrophil % 81.8 % (47-70); Platelet Count 199 K/mm3 (150-450); RBC Distribution Width CV 13.3 % (11.6-14.6); RBC Distribution Width SD 43.7 fl (35.1-43.9); Red Blood Count 3.45 M/mm3 (4.2-5.4); White Blood Count 9.7 K/mm3 (4.4-11.0)
[2023-02-25 13:35] LABS: Glucose Challenge Gest 1H 50g 157 mg/dL (70-140)
[2023-02-25 14:07] LABS: HIV - WCH Non-Reactive (Nonreactive); Syphilis Antibodies Non-reactive
== END | disposition home or self-care (01) ==
PROVIDERS: Obstetrics & Gynecology; Referring Provider Nurse Practitioner Women's Health; Visit Provider Nurse Practitioner Women's Health
DX: O23.40 Unspecified infection of urinary tract in pregnancy, unspecified trimester (principal); Z3A.00 Weeks of gestation of pregnancy not specified
CPT/HCPCS: 36415; 82950; 85025; 86703; 86780; 87077; 87086; 87088; 87186

== ENCOUNTER → 2023-03-10 | Outpatient (CLI) | payer SELFPAY ==
[2023-03-10 07:47] LABS: Glucose GTT-Gestation. Fasting 86 mg/dL (<105)
[2023-03-10 08:47] LABS: Glucose GTT-Gestational 1 Hr 180 mg/dL (<190)
[2023-03-10 09:49] LABS: Glucose GTT-Gestational 2 Hr 119 mg/dL (<165)
[2023-03-10 11:38] LABS: Glucose GTT-Gestational 3 Hr 48 L (<145)
== END | disposition home or self-care (01) ==
LOC: LAB 06:52
PROVIDERS: PCP Physician Assistant; Referring Provider Nurse Practitioner Women's Health; Visit Provider Nurse Practitioner Women's Health
DX: Z13.1 Encounter for screening for diabetes mellitus (principal)
CPT/HCPCS: 36415; 82951; 82952

== ENCOUNTER → 2023-03-11 | Outpatient (CLI) | payer SELFPAY ==
--- NOTE | 2023-03-11 10:29 | US_ITS ---
INDICATION: growth, TWINS COMPARISON: OB ultrasound 02/11/2023. FINDINGS: 92 grayscale ultrasound images demonstrate live twin . Baby A: Breech presentation. Measuring at 30 weeks +4 days average ultrasound age. Estimated weight 1589 g, the 51st percentile. heart rate 120-127 bpm. Adequate amniotic fluid volume with multiple large pockets visualized, deepest vertical pocket 3 cm Posterior placenta is unremarkable for gestational age. Baby B: Right transverse presentation. Measuring at 31 weeks +1 day average ultrasound age. Estimated weight 1666 g, the 65th percentile. heart rate 137-138 bpm. Adequate amniotic fluid volume with multiple large pockets visualized, deepest vertical pocket 7 cm Anterior placenta is unremarkable for gestational age. Uterine myometrium is unremarkable. Uterine cervix is long and closed measuring 4.2 cm in length. Bilateral ovaries are not visualized. No significant free fluid. IMPRESSION: Live twin as above. Electronically Signed: Aime Hannon MD at 6:09 EDT , INDICATION: growth, TWINS COMPARISON: OB ultrasound 02/11/2023. FINDINGS: 92 grayscale ultrasound images demonstrate live twin . Baby A: Breech presentation. Measuring at 30 weeks +4 days average ultrasound age. Estimated weight 1589 g, the 51st percentile. heart rate 120-127 bpm. Adequate amniotic fluid volume with multiple large pockets visualized, deepest vertical pocket 3 cm Posterior placenta is unremarkable for gestational age. Baby B: Right transverse presentation. Measuring at 31 weeks +1 day average ultrasound age. Estimated weight 1666 g, the 65th percentile. heart rate 137-138 bpm. Adequate amniotic fluid volume with multiple large pockets visualized, deepest vertical pocket 7 cm Anterior placenta is unremarkable for gestational age. Uterine myometrium is unremarkable. Uterine cervix is long and closed measuring 4.2 cm in length. Bilateral ovaries are not visualized. No significant free fluid. US/OB Limited With Biometrics
== END | disposition home or self-care (01) ==
LOC: OPUS 10:28
PROVIDERS: PCP Physician Assistant; Referring Provider Nurse Practitioner Women's Health; Visit Provider Nurse Practitioner Women's Health
DX: O30.049 Twin pregnancy, dichorionic/diamniotic, unspecified trimester (principal); Z3A.00 Weeks of gestation of pregnancy not specified
CPT/HCPCS: 76816

== ENCOUNTER → 2023-04-10 | Outpatient (CLI) | payer SELFPAY ==
--- NOTE | 2023-04-10 07:53 | US_ITS ---
STUDY: SECOND AND THIRD TRIMESTER OBSTETRICAL ULTRASOUND - LIMITED REASON FOR EXAM: Female, 32 years old growth TWINS . Baby A LMP: February 09, 2023. PRIOR ULTRASOUND: Comparison is made with prior study dated March 11, 2023. TECHNIQUE: Transabdominal TECHNICAL QUALITY: Adequate. FINDINGS: There is a single intrauterine fetus. The fetus is in a cephalic presentation. There is demonstrated cardiac activity with a heart rate of 136 bpm. There is a normal amniotic fluid volume. The largest amniotic fluid pocket measures 4.5 cm x 5.7 cm. The amniotic fluid index (TEETEE) is within normal limits. The placenta is fundal in location. There are Grade 2 placental changes. The cervix measures 3.8 cm in length. BIOMETRY: BPD: 8.67 cm: 35 weeks, 0 days HC: 31.38 cm: 35 weeks, 1 days AC: 31.36 cm: 35 weeks, 2 days FL: 6.67 cm: 34 weeks, 2 days Age by LMP: 34 weeks, 3 days. SRI by LMP: May 19, 2023. age by prior US: 34 weeks, 6 days. SRI by prior US: May 16, 2023. age by current US: 34 weeks, 5 days. SRI by current US: May 17, 2023. Estimated weight: 2591 grams, +/- 389 grams, 64 percentile. IMPRESSION: Live intrauterine gestation with a mean gestational age of 34 weeks and 5 days. The measurements obtained today following with thin the normal expected range. Electronically Signed: Amado Lim MD at 14:28 EDT , STUDY: SECOND AND THIRD TRIMESTER OBSTETRICAL ULTRASOUND - TWIN REASON FOR EXAM: Female, 32 years old. LMP: August 12, 2022. growth TWINS TECHNIQUE: Transabdominal TECHNICAL QUALITY: Adequate. COMPARISON: None. FINDINGS: There are two intrauterine fetuses. The amniotic membrane cannot be visualized. There is a normal amniotic fluid volume within each amniotic sac. The uterine wall is normal. There is a competent closed cervical os. The cervix measures 3.8 cm in length. The bilateral adnexal regions are normal. Fetus B demonstrates cardiac activity with a heart rate of 136 bpm. Fetus B is in an oblique presentation with the head on the maternal left side. FETUS B BIOMETRY: BPD: 8.47 cm: 34 weeks, 1 days HC: 31.26 cm: 35 weeks, 0 days AC: 30.93 cm: 34 weeks, 6 days FL: 6.72 cm: 34 weeks, 4 days CI: 78% FL/BPD: 79% FL/HC: FL/AC: 22% HC/AC: 1.01 age by current US: 34 weeks, 4 days. SRI by current US: May 18, 2023. Estimated weight: 2515 grams, +/- 377 grams, 55 %. age by prior US: 35 weeks, 3 days. SRI by previous US: May 12, 2023. Age by LMP: 34 weeks, 3 days. SRI by LMP: May 19, 2023. US/OB Limited With Biometrics IMPRESSION: Intrauterine gestation with a mean gestational age of 35 weeks and 3 days. The measurements obtained today fall within normal expected range. Electronically Signed: Amado Lim MD at 14:31 EDT ,
== END | disposition home or self-care (01) ==
PROVIDERS: Referring Provider Nurse Practitioner Women's Health; Visit Provider Nurse Practitioner Women's Health
DX: O30.049 Twin pregnancy, dichorionic/diamniotic, unspecified trimester (principal); Z3A.00 Weeks of gestation of pregnancy not specified
CPT/HCPCS: 76816

== ENCOUNTER 2023-04-28 20:25 | Inpatient (IN) | payer SELFPAY ==
[2023-04-28] VITALS (44 sets, daily range): BP systolic 111–175; BP diastolic 66–104; PULSE 59–81; RESP 16–21; TEMP 36.1–37.4; O2SAT 96–99; BMI 36.3
[2023-04-28 20:13] LABS: Hematocrit 36.5 % (37-47); Hemoglobin 11.9 g/dL (12.0-15.0); Mean Corp Hgb Conc 32.6 g/dL (32-36); Mean Corpuscular Hgb 29.3 pg (27.0-32.0); Mean Corpuscular Volume 89.9 fL (81-99); Mean Platelet Vol. 11.1 fl (6.2-12.0); Platelet Count 136 K/mm3 (150-450); RBC Distribution Width CV 17.3 % (11.6-14.6); Red Blood Count 4.06 M/mm3 (4.2-5.4); White Blood Count 8.7 K/mm3 (4.4-11.0)
[2023-04-28 20:33] LABS: AST(SGOT) 14 U/L (15-37); Alanine Aminotransfer ALT/SGPT 13 U/L (13-56); Creatinine, Serum 0.71 mg/dL (0.55-1.02); EST Glomerular Filtration Rate 102 mL/min (>60); Est Glom Filt Rate - Afr Amer 124 mL/min (>60); Estimated Creatinine Clearance 124.15 ml/min; Uric Acid 7.4 mg/dL (2.6-6.0)
--- NOTE | 2023-04-28 20:34 | HP.PCM.OB_ITS ---
HPI - General General Date of Admission: 04/28/23 HPI Narrative RENETTA BENAVIDES, is a 32 y/o @ 37 weeks 0 days who presents to L&D due to 24 hours of elevated blood pressures at home. Her most recent on the unit is 169/106, then 172/103. She appears flush but denies headaches or blurry vision, no abdominal pain, nausea, vomiting, or RUQ pain. She is a twin gestation and has a h/o prior twin delivery. Maternal Data Information SRI Calculator Estimated Delivery Date Method Current WG Current Estimate 05/19/23 LMP (Certain) 37w 0d # 2 PFSH PFSH Medical History (Updated 04/28/23 @ 20:[address] Odilia Henriquez DO) DVT (deep venous thrombosis) Gestational HTN Superficial varicosities Supervision of normal Home Medications docosahexaenoic acid 200 mg capsule ( DHA) mg PO 03/11/23 [History Last Taken 04/28/23 19:51 200 mg] ferrous sulfate 325 mg (65 mg iron) tablet 325 mg PO DAILY 03/11/23 [History Last Taken 04/27/23 20:00 325 mg] Allergy/AdvReac Type Severity Reaction Status Date / Time No Known Allergies Allergy Verified 04/28/23 19:51 Family History Grandmother Heart disease Myocardial infarction Grandfather Myocardial infarction Heart disease Father Hypertension Mother Hypertension Surgical History (Updated 04/28/23 @ 20:26 by Portia Pool) delivery delivered History of surgery Social History adopted: No household members: spouse and children number of children: 4 current occupational status: unemployed current occupation: [employer] pets and animals: No history of recent travel: No sexually active: Yes Smoking Status: Never smoker alcohol intake: never substance use type: does not use well-balanced diet: daily or most days caffeine: Yes Type: coffee Number of servings: 1 eating out: rarely or never what type of physical activity do you participate in: walking seatbelt use: always do you feel safe at home: Yes 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 Date Name GA/Weeks Outcome Route Bth Weight Gen Labor Lgth Anesthesia Del Dimitriosatkiko Provider FOB 07/29/14 Danae 42 live - full term 8lbs 12oz Female e pidural Home 03/07/17 Yahaira 41 live - full term 9lbs 4 oz Female none Home 04/28/19 Corinna 37 live - full term Female spinal [facility] 04/28/19 Gustavo 37 live - full term Male sp inal [facility] Delivery Date: 04/28/19 Last Updated by: Theresa Torrez Twins; GHTN Delivery Date: 04/28/19 Last Updated by: Theresa Torrez twin, [place] Visit Details Expected Delivery Route/Plan Labor Preferences- CB/BF classes: declines labor support person: Brennan labor intervention preferences: min intervention pain management options preferred: none cut cord/dad catch: [] : yes PP control planned: discussed discussed possible routes of delivery and associated risks: [] special requests: [] Plans Covid status: unvacinnated Flu vaccine: declines Tdap vaccine: declines Rhogam: na LARC form signed: yes Problem list reviewed and updated with the most current plan of care details and appropriate orders placed. Relevant counseling for the gestational age provided. Continue routine care and follow up unless otherwise noted in visit notes/problem list details OB Flowsheet Initial Weight: Not Recorded Date -?-?-?-?--?-?-?-?-?-?-?-?- EGA Weight BP Urine Prot -?-?-?-?-?-?-?-?-?-?-?-?- Glucose FHR FuHt Pres Dilation -?-?-?-?-?-?-?-?-?-?-?-?- Effaced St Visit Note 10/10/22 -?-?-?-?-?-?-?-?-?-?-?-?- 8w 3d 206 lb 4 oz 114/74 -?-?-?-?-?-?-?-?-?-?-?-?- A 180 -?-?-?-?-?-?-?-?-?-?-?-?- B 163 A -?-?-?-?-?-?-?-?-?-?-?-?- B -?-?-?-?-?-?-?-?-?-?-?-?- A -?-?-?-?-?-?-?-?-?-?-?-?- B A KW-no complaints . JV did US-Twins KW-no complaints. JV did US- Twins-CRL consistent with dates -?-?-?-?-?-?-?-?-?-?-?-?- B JV-CRL consistent with dates 11/06/22 -?-?-?-?-?-?-?-?-?-?-?-?- 12w 2d 211 lb 8 oz 133/85 Nega tive -?-?-?-?-?-?-?-?-?-?-?-?- Negative A 157 175 -?-?-?-?-?-?-?-?-?-?-?-?- B 175 157 A -?-?-?-?-?-?-?-?-?-?-?-?- B -?-?-?-?-?-?-?-?-?-?-?-?- A -?-?-?-?-?-?-?-?-?-?-?-?- B A LC- no complaint s. discussed afp, declines. -?-?-?-?-?-?-?-?-?-?--?-?- B 12/04/22 -?-?-?-?-?-?-?-?-?-?-?-?- 16w 2d 220 lb 119/78 Negative -?-?-?-?-?-?-?-?-?-?-?-?- Negative A 133 -?-?-?-?-?-?-?-?-?-?-?-?- B 144 A -?-?-?-?-?-?-?-?-?-?-?-?- B -?-?-?-?-?-?-?-?-?-?-?-?- A -?-?-?-?-?-?-?-?-?-?-?-?- B A JV- no lof, vagi nal bleeding, or cramping. has anatomy scan scheduled on 12/24 -?-?-?-?-?-?-?-?-?-?-?-?- B 01/03/23 -?-?-?-?-?-?-?-?-?-?-?-?- 20w 4d 222 lb 6 oz 123/77 Nega tive -?-?-?-?-?-?-?-?-?-?-?-?- Negative A 150 -?-?-?-?-?-?-?-?-?-?-?-?- B 165 A -?-?-?-?-?-?-?-?-?-?-?-?- B -?-?-?-?-?-?-?-?-?-?-?-?- A -?-?-?-?-?-?-?-?-?-?-?-?- B A JV- no complaint s today both babies are vtx and pt has her anatomy scan next week. -?-?-?-?-?-?-?-?-?-?-?-?- B 01/31/23 -?-?-?-?-?-?-?-?-?-?-?-?- 24w 4d 229 lb 2 oz 121/76 Nega tive -?-?-?-?-?-?-?-?-?-?-?-?- Negative A 140 -?-?-?-?-?-?-?-?-?-?-?-?- B 150 A Breech -?-?-?-?-?-?-?-?-?-?-?-?- B Transverse -?-?-?-?-?-?-?-?-?-?-?-?- A -?-?-?-?-?-?-?-?-?-?-?-?- B A SM- no vb lof cr amping good fm x 2 -?-?-?-?-?-?-?-?-?-?-?-?- B 02/25/23 -?-?-?-?-?-?-?-?-?-?-?-?- 28w 1d 231 lb 122/80 Negative -?-?-?-?-?-?-?-?-?-?-?-?- Negative A 150 -?-?-?-?-?-?-?-?-?-?-?-?- B 160 A -?-?-?-?-?-?-?-?-?-?-?-?- B -?-?-?-?-?-?-?-?-?-?-?-?- A -?-?-?-?-?-?-?-?-?-?-?-?- B A MH-No Vb, LOF. N O CTX. Vomited 1 hr GCT. 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 Goof FM x 2. Has US scheduled for next appointment. -?-?-?-?-?-?-?-?-?-?-?-?- B discussed possible c/s if tw ins not vertex at next US. 03/28/23 -?--?-?-?-?-?-?-?-?-?-?-?- 32w 4d 238 lb 6 oz 130/76 Nega tive -?-?-?-?-?-?-?-?-?-?-?-?- Negative A 133 -?-?-?-?-?-?-?-?-?-?-?-?- B 144 A Cephalic -?-?-?-?-?-?-?-?-?-?-?-?- B Transverse -?-?-?-?-?-?-?-?-?-?-?-?- A -?-?-?-?-?-?-?-?-?-?-?-?- B A JV- no lof, va g inal bleeding, or dec fm. no contractions yet -?-?-?-?-?-?-?-?-?-?-?-?- B 04/10/23 -?-?-?-?-?-?-?-?-?-?-?-?- 34w 3d 243 lb 8 oz 131/80 Nega tive -?-?-?-?-?-?-?-?-?-?-?-?- Negative A 128 -?-?-?-?-?-?-?-?-?-?-?-?- B 134 A Cephalic -?-?-?-?-?-?-?-?-?-?-?-?- B Transverse -?-?-?-?-?-?-?-?-?-?-?-?- A -?-?-?-?-?-?-?-?-?-?-?-?- B A JV- growth today shows baby a is 5 lbs 11 oz -?-?-?-?-?-?-?-?-?-?-?-?- B JV- growth today shows baby is 5 lbs 9 oz, no lof, vaginal bleeding, or dec fm. rto in 2 weeks. 04/25/23 -?-?-?-?-?-?-?-?-?-?-?-?- 36w 4d 248 lb 2 oz 130/100 128/92 130/82 Negative -?-?-?-?-?-?-?-?-?-?-?-?- Negative A 140 -?-?-?-?-?-?-?-?-?-?-?-?- B 140 A Cephalic -?-?-?-?-?-?-?-?-?-?-?-?- B Transverse 0.5 -?-?-?-?-?-?-?-?-?-?-?-?- A -?-?-?-?-?-?-?-?-?-?-?-?- B A SM- no vb lof go od fm no regular ctx -?-?-?-?-?-?-?-?-?-?-?-?- B ROS Constitutional Constitutional: Denies change in weight, fatigue, fever(s), headache(s), poor appetite or weakness Eyes Eyes: Denies blurry vision, change in vision, seeing flashes or spots in vision ENT HEENT: Denies dizziness, headache(s), loss taste/smell or sore throat Cardiovascular Cardiovascular: Denies chest pain, dizziness, dyspnea, irregular heart rhythm, leg edema, palpitations, rapid heart rate or vomiting Respiratory/Chest Respiratory/Chest: Denies chest tightness, cough, dyspnea or breast pain Gastrointestinal Gastrointestinal: Denies abdominal pain, anorexia, constipation, cramping, inocente rrhea, hemorrhoids, vomiting or weight changes Genitourinary Genitourinary: Denies dysuria, flank pain, genital lesions, genital pain, urinary frequency or urinary urgency Musculoskeletal Musculoskeletal: Denies back pain, difficulty walking, joint pain, limited range of motion, muscle cramps or numbness Integumentary Integumentary: Denies lesions or unusual bruising Neurologic Neurologic: Denies abnormal movements, abnormal speech, dizziness, numbness, seizure-like activity or syncope Psychiatric Psychiatric: Denies anxiety, behavioral changes, change in appetite, change in libido, cognitive impairment, confusion, depression, difficulty concentrating, hallucinations or suicidal thoughts Endocrine Endocrinology: Denies excessive sweating, polydipsia or polyuria Hematologic/Lymphatic Hematologic/Lymphatic: Denies easy bleeding, easy bruising or lymphadenopathy Allergic/Immunologic Allergic/Immunologic: Denies itchy eyes, lip swelling, seasonal rhinorrhea, rhinitis, throat swelling, tongue swelling, eczemia, wheezing or asthma Vital Signs Vital Signs Vital Signs: 04/28/23 19:35 04/28/23 19:34 04/28/23 19:35 Temperature Temperature Source Tympanic Pulse Rate 69 Blood Pressure 150/88 H BP Systolic 150 BP Diastolic 88 Pulse Ox 04/28/23 19:35 04/28/23 19:35 04/28/23 19:40 Temperature 99.3 F H Temperature Source Pulse Rate 75 Blood Pressure BP Systolic BP Diastolic Pulse Ox 98 04/28/23 19:40 04/28/23 19:45 04/28/23 19:45 Temperature Temperature Source Pulse Rate 70 Blood Pressure BP Systolic BP Diastolic Pulse Ox 98 98 04/28/23 19:50 04/28/23 19:50 04/28/23 19:51 Temperature Temperature Source Pulse Rate 71 Blood Pressure 145/89 H BP Systolic 145 BP Diastolic 89 Pulse Ox 98 04/28/23 19:51 04/28/23 20:07 04/28/23 20:07 Temperature Temperature Source Pulse Rate 72 69 Blood Pressure 175/100 H BP Systolic 175 BP Diastolic 100 Pulse Ox 04/28/23 20:20 04/28/23 20:20 Temperature Temperature Source Pulse Rate 76 Blood Pressure 169/104 H BP Systolic 169 BP Diastolic 104 Pulse Ox Weight Weight: 253 lb 1.451 oz Body Mass Index (BMI) 36.3 Physical Exam Const alert, oriented x3, no apparent distress and healthy appearing General Appearance: cooperative; Negative for anxious HEENT normocephalic Face and Sinus: normal facial exam Eyes EOMs intact bilaterally and no scleral icterus General Eye: normal appearance of both eyes Neck full ROM and supple Lymph Lymphatic: no lymphadenopathy noted Chest Chest: abnormal inspection of the chest Resp normal respiratory effort Effort and Inspection: able to speak in complete sentences Cardio regular rate GI soft to palpation and non-tender Inspection: gravid Palpation: soft; Negative for tender Back/Spine no CVA tenderness Extremity normal to inspection, full ROM and no clubbing, cyanosis or edema General Extremity: Negative for calf tenderness or edema Skin Lesions: no lesions Rashes: no rashes Psych mental status grossly normal Labs Labs Labs: Blood Type O POSITIVE Antibody Screen NEGATIVE Hct 36.5 % (37-47) L Hgb 11.9 g/dL (12.0-15.0) L Obstetrics US Syphilis Total Ab Non-reactive Rubella IgG Antibody Reactive (Nonreactive) Hep Bs Antigen Non-Reactive (Nonreactive) Chlamydia DNA (ADRI) Negative (Negative) Neisseria gonorrhoeae DNA (ADRI) Negative (Negative) HIV 1&2 Antibody Non-Reactive (Nonreactive) Glucose 1 Hr 50 gm 157 mg/dL (70-140) H Group B Strep DNA Negative (Negative) Rhogam given: No Assessment & Plan (1) Malposition or malpresentation of fetus, antepartum: COMMENT: At 31 weeks-Twin A Breech Twin B Transverse RLTCS scheduled 05/05 @ 7:30 with SM (2) GBS (group B streptococcus) UTI complicating : COMMENT: treat in labor (3) UTI in , antepartum: COMMENT: rpt urine culture 02/25/23: low growth GBS only (4) Supervision of high risk , antepartum: COMMENT: PRR SRI 05/19/23 boys PC:Yahaira Fink [place]/Gustavo Spouse: Brennan (5) Twin dichorionic diamniotic placenta: COMMENT: NSTs starting at 36 weeks, plan 38 week delivery, growth US q 4 weeks, 34 wks normal growth 64% (6) Desires (vaginal after ) trial: COMMENT: 83.2% (7) History of gestational hypertension: COMMENT: passed 3 hour GCT (8) : QUALIFIERS: Weeks of gestation: 36 weeks Qualified Code(s): Z3A.36 - 36 weeks gestation of COMMENT: declines NIPT, carrier, and ntd screen. nl anatomy, passed 3hr gtt (9) delivery delivered: COMMENT: breech twins (10) Severe hypertension affecting : COMMENT: starting hypertensive protocol, pih labs and likely magnesium sulfate soon PLAN: Plan proceed with mar section start htn protocol if next bp still elevated, start mag sulfate 2 grams ancef now.
[2023-04-28] MEDS: Lactated Ringers 1,000 ML 999 ML IV (20:40)
[2023-04-28] MEDS: Labetalol (Prefilled) 20 MG/4 ML IV (20:41)
[2023-04-28 20:57] LABS: Absolute Lymphocyte Count 1.63 X10^3/uL (0.83-4.51); Absolute Neutrophil Count 6.3 X10^3/uL (2.0-7.7); Basophil# 0.01 X10^3/uL; Basophil% 0.1 % (0-1); Eosinophil# 0.11 X10^3/uL; Eosinophils% 1.3 % (0-5); Lymphocyte # 1.63 X10^3/ul (0.83-4.51); Lymphocyte % 19.1 % (19-41); Monocyte% 5.9 % (0-10); NRBC Flagged by Analyzer 0 % (0-5); Neutrophil # 6.25 X10^3/uL (2.7-7.7); Neutrophil % 73.1 % (47-70)
[2023-04-28] MEDS: Labetalol (Prefilled) 20 MG/4 ML 40 MG IV ×2 (21:00→21:23)
[2023-04-28] MEDS: Magnesium Sulfate 4gm/100mL 4 GM/100 ML IV.SOLN. IV (21:02)
[2023-04-28] MEDS: Acetaminophen 500 MG Tablet 1000 MG PO (21:03)
[2023-04-28] MEDS: Sodium Citrate/Citric Acid 30 ML UDC PO (21:08)
[2023-04-28] MEDS: Magnesium Sulfate 4gm/100mL 2 GM/50 ML IV.SOLN. IV (21:26)
[2023-04-28 21:31] LABS: Syphilis Antibodies Non-reactive
[2023-04-28] MEDS: Magnesium Sulfate 20 GM/500 ML BAG IV (21:32)
[2023-04-28] MEDS: Cefazolin 2 GM in 0.9% Normal Saline (100mL Bag) 100 ML IV (21:50)
--- NOTE | 2023-04-28 22:53 | EX.PCM.OBRPT ---
Assessment & Plan (1) Severe hypertension affecting : COMMENT: starting hypertensive protocol, pih labs and likely magnesium sulfate soon (2) Malposition or malpresentation of fetus, antepartum: COMMENT: At 31 weeks-Twin A Breech Twin B Transverse RLTCS scheduled 05/05 @ 7:30 with SM (3) GBS (group B streptococcus) UTI complicating : COMMENT: treat in labor (4) UTI in , antepartum: COMMENT: rpt urine culture 02/25/23: low growth GBS only (5) Supervision of high risk , antepartum: COMMENT: PRR SRI 05/19/23 boys PC:Yahaira Fink [place]/Gustavo Spouse: Brennan (6) Twin dichorionic diamniotic placenta: COMMENT: NSTs starting at 36 weeks, plan 38 week delivery, growth US q 4 weeks, 34 wks normal growth 64% (7) Desires (vaginal after ) trial: COMMENT: 83.2% Maternal Data Information SRI Calculator Estimated Delivery Date Method Current WG Current Estimate 05/19/23 LMP (Certain) 37w 0d # 2 Final SRI: 05/19/23 Final SRI Source: LMP Gestational age: 37 weeks 0 days Doctor Who Attended Delivery: Tamra Kohli Details Operative Information Date of Procedure: 04/28/23 Pre-Operative Diagnosis: 32 y/o @ 37 weeks, severe pre-eclampsia, twin gestation, prior section Post-Operative Diagnosis: 32 y/o @ 37 weeks, severe pre-eclampsia, twin gestation, prior section Classification: EDGAR Procedure Type: low transverse 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 Spinal anesthesia was found to be adequate. She was prepped and draped in the normal sterile fashion and was placed in a dorsal supine position with a leftward tilt. Pfannenstiel skin incision was made with a scalpel and carried through to the underlying layers. The fascia was nicked in the midline and extended laterally using Russell scissors. The anterior aspect of the fascia was grasped with Cornelio clamps and the underlying rectus muscles dissected off using the Metzenbaum scissors. The inferior aspect the fascia was also grasped with Cornelio clamps and the underlying rectus muscle dissected off with the Metzenbaum scissors. The rectus muscles were in the midline. Peritoneum was entered sharply. The uterus was identified and a bladder blade was inserted into the abdomen. Bladder flap was created off the uterus using Metzenbaum scissors. A transverse incision was made with a scalpel and extended laterally manually. The infant's head was grasped with the help of my city carrier assistant and fundal pressure the infant was delivered through the uterine incision without difficulty. The mouth and nares were bulb suctioned. After a 30 second delay the cord was clamped and cut. The second membrane bag was ruptured and clear fluid returned. The infant was in the transverse position and was brought to a vertex presentation manually. The infant was delivered without difficulty. The mouth and nares were bulb suctioned and the cord was clamped and cut after 30 seconds. Both babies were handed off to the awaiting bicycle subassembler for routine assessment. Both Placentas were delivered manually without difficulty. The uterus was exteriorized and cleared of all clots and debris. Incision was closed with an 0 Vicryl suture in a running locked fashion. Second layer of 1-0 Monocryl suture was used in imbricating manner to create excellent closure and hemostasis. The uterus was returned to the abdomen. The gutters were cleared of all clots and debris. The peritoneum was closed in a pursestring pattern using a 3-0 Vicryl suture. The fascia was closed with a PDS stratafix suture. Subcutaneous tissue layer was closed using a plain gut suture. The skin was closed with a 4-0 Monocryl subcuticular stitch. The skin was also sealed with surgical glue. The patient tolerated the procedure well sponge lap and needle counts were correct at each tissue closure plane and the patient is now being brought to the recovery room in stable condition Presentation: Positive for Vertex Amniotic Membrane Rupture Type: Artificial Amniotic Fluid Description: Clear Placental Delivery Description: Manual Removal Placenta Disposition: [facility] Cord Vessel Description: 3 Vessels Cord Entanglement: None A Gender: Male (1 minute): 9 (5 minute): 9 Delayed Cord Clamping: Yes Complications Risks of Surgery Discussed w/Patient: Bleeding, Anesthesia Risks, Infection, Need for Future C-Sections and Injury to surrounding structure(s) including bowel and bladder Baby B Operative Information Mode of Delivery: Cord Entanglement: None B gender: Male (1 minute): 9 (5 minute): 9 Delayed Cord Clamping: Yes Multi Select Codes Urinary/Genital Urinary/Genital CPT Codes: 25483 Delivery [facility]
--- NOTE | 2023-04-28 23:01 | DCINST_ITS ---
Discharge Instructions Diet Discharge Diet: No restrictions Activity Discharge Activity: May Not Drive (for 2 weeks or while taking narcotic pain medications.), May Shower and May Take a Tub Bath (in 7 days.) May resume sexual activity in: 4-6 weeks Weight Bearing Status: Full weight bearing Lifting Restrictions: 20 pounds Dressing / Incision Call your doctor if your incision/area has: Continuous Slow Oozing, Sudden Increased Bleeding, Increased Pain/ Swelling, Increased Redness and Foul Smelling Discharge Call your doctor if you observe: Fever of 101 or Higher and Using more than 1 pad per hour Suture Line Care: Avoid Pulling/Pushing and Avoid Pinching/Bending Cleanse incision/area with: Soap & Water and Keep Dressing Clean & Dry Follow Up Care Please Follow Up With: Odilia Henriquez DO When: Call [phone] to make an appointment for an incision check in 1-2 weeks. Test Results: Test results from this visit will be discussed in further detail at your follow- up appointment, if applicable. Discharge Plan Admission Admit Date/Time: 04/28/23 20:25 Primary Reason for Your Visit: section Attending Provider: Odilia Henriquez Primary Care Provider: Danilo Leal Discharge Orders/Prescriptions Prescriptions: New ibuprofen 800 mg tablet 800 mg PO Q8H PRN (Reason: pain) Qty: 30 0RF Continued DHA 200 mg capsule PO ferrous sulfate 325 mg (65 mg iron) tablet 325 mg PO DAILY Referrals / Follow Up: Danilo Leal PA-C [Primary Care Provider] - Disposition Disposition (needs filled in before D/C Order can be placed): Home, Self Care
[2023-04-29] VITALS (234 sets, daily range): BP systolic 107–142; BP diastolic 58–89; PULSE 56–90; RESP 14–17; TEMP 36.2–37.2; O2SAT 87–100
[2023-04-29] MEDS: Oxytocin 15 Units/NS 250ml 15 UNITS/250 ML IV.SOLN 83 UNITS IV (00:03)
[2023-04-29] MEDS: Ketorolac 30 MG/ML Syringe IV ×4 (00:05→18:16)
--- NOTE | 2023-04-29 00:47 | NURSING ---
look at vitals flowsheet
--- NOTE | 2023-04-29 00:48 | NURSING ---
look at vitals flowsheet
[2023-04-29] MEDS: Lactated Ringers 1,000 ML 15 ML IV (02:58)
--- NOTE | 2023-04-29 02:58 | NURSING ---
Magnesium recovery assessment not done from 2142 to 2314 due to being in the OR.
[2023-04-29] MEDS: Acetaminophen 500 MG Tablet 1000 MG PO ×4 (04:35→22:36)
[2023-04-29 06:02] LABS: Hematocrit 34.6 % (37-47); Hemoglobin 11.2 g/dL (12.0-15.0); Mean Corp Hgb Conc 32.4 g/dL (32-36); Mean Corpuscular Hgb 29.4 pg (27.0-32.0); Mean Corpuscular Volume 90.8 fL (81-99); Mean Platelet Vol. 10.9 fl (6.2-12.0); Platelet Count 142 K/mm3 (150-450); RBC Distribution Width CV 17.2 % (11.6-14.6); RBC Distribution Width SD 57.7 fl (35.1-43.9); Red Blood Count 3.81 M/mm3 (4.2-5.4); White Blood Count 16.8 K/mm3 (4.4-11.0)
[2023-04-29] MEDS: Magnesium Sulfate 20 GM/500 ML BAG IV ×2 (06:50→16:40)
--- NOTE | 2023-04-29 08:32 | PN.OBGYN_ITS ---
Subjective Subjective Patient doing well without complaints. Tolerating PO. Ambulating and voiding without difficulty. Feeding well. Denies chest pain, shortness of breath, calf pain/swelling, fevers, chills, lightheadedness. Objective Data Objective Data Vital Signs: Vital Signs Temp Pulse Resp BP Pulse Ox O2 Del Method 98.3 F 67 16 133/67 H 98 Room Air 04/29/23 07:30 04/29/23 07:32 04/29/23 07:30 04/29/23 07:32 04/29/23 07:30 04/29/23 07:30 Oxygen Delivery Method Room Air Weight: 253 lb 1.451 oz Body Mass Index (BMI) 36.3 Intake & Output: Intake and Output for Last 24 Hours 04/27/23 04/28/23 04/29/23 23:59 23:59 23:59 Intake Total 1260 / 1260 960.83 / 960.83 Output Total 1000 / 1000 750 / 750 Balance 260 / 260 210.83 / 210.83 Lab / Micro Data Attestation: I reviewed the patient's lab results. 04/29/23 05:50 04/28/23 20:00 Labs: Laboratory Results - last 24 hr 04/28/23 19:43: U Random Total Protein Cancelled, Urine Creatinine Cancelled, Protein/Creatinin Ratio Cancelled 04/28/23 20:00: WBC 8.7, RBC 4.06 L, Hgb 11.9 L, Hct 36.5 L, MCV 89.9, MCH 29.3, MCHC 32.6, RDW Std Deviation 57.0 H, RDW Coeff of Yeyo 17.3 H, Plt Count 136 L, MPV 11.1, Immature Gran % (Auto) 0.500, Neut % (Auto) 73.1 H, Lymph % (Auto) 19.1, [place] % (Auto) 5.9, Eos % (Auto) 1.3, Baso % (Auto) 0.1, Absolute Neuts (auto) 6.3, Absolute Lymphs (auto) 1.63, Nucleated RBC % 0, Creatinine 0.71, Estim Creat Clear Calc 124.15, Est GFR (MDRD) Af Amer 124, Est GFR (MDRD) Non-Af 102, Uric Acid 7.4 H, AST 14 L, ALT 13, Syphilis Total Ab Non-reactive, Blood Type O POSITIVE, Antibody Screen NEGATIVE 04/29/23 05:50: WBC 16.8 H, RBC 3.81 L, Hgb 11.2 L, Hct 34.6 L, MCV 90.8, MCH 29.4, MCHC 32.4, RDW Std Deviation 57.7 H, RDW Coeff of Yeyo 17.2 H, Plt Count 14 2 L, MPV 10.9 ROS Constitutional Constitutional: Reports systems reviewed and no addt'l complaints, except as documented; Denies anorexia or headache(s) Cardiovascular Cardiovascular: Reports systems reviewed and no addt'l complaints, except as documented; Denies dizziness, dyspnea, nausea or tachypnea Respiratory/Chest Respiratory/Chest: Reports systems reviewed and no addt'l complaints, except as documented; Denies cough, dyspnea, shortness of breath at rest or tachypnea Gastrointestinal Gastrointestinal: Reports systems reviewed and no addt'l complaints, except as documented; Denies abdominal pain, constipation or nausea Genitourinary Genitourinary: Reports systems reviewed and no addt'l complaints, except as documented; Denies burning urination, difficulty urinating, dysuria, urinary frequency or urinary incontinence Musculoskeletal Musculoskeletal: Reports systems reviewed and no addt'l complaints, except as documented Integumentary Integumentary: Reports systems reviewed and no addt'l complaints, except as documented Neurologic Neurologic: Reports systems reviewed and no addt'l complaints, except as documented; Denies abnormal speech, dizziness or headache(s) Psychiatric Psychiatric: Reports systems reviewed and no addt'l complaints, except as documented Endocrine Endocrinology: Reports systems reviewed and no addt'l complaints, except as documented Hematologic/Lymphatic Hematologic/Lymphatic: Reports systems reviewed and no addt'l complaints, except as documented Physical Exam Const alert, oriented x3 and no apparent distress Neck full ROM Resp normal respiratory effort, normal air movement and no retractions Effort and Inspection: able to speak in complete sentences and symmetric chest movement GI soft to palpation Inspection: incision intact and drainage Bladder / Kidney Exam: bladder normal to palpation Uterus Palpation: uterus fundus firm Extremity normal to inspection and full ROM Psych mental status grossly normal, thought process normal and cooperative Assessment & Plan (1) Status post delivery: PLAN: s/p LTCS PPD # 1 1. routine post care 2. breast feeding- support given 3. rh positive 4. rubella immune (2) Severe hypertension affecting : COMMENT: starting hypertensive protocol, pih labs and likely magnesium sulfate soon Charges/Coding Multi Select Codes Urinary/Genital Urinary/Genital CPT Codes: No Charge
[2023-04-29] MEDS: Senna/Docusate Sodium 1 Tablet PO (09:35)
[2023-04-29] MEDS: Enoxaparin 40 MG/0.4 ML Syringe SC (09:37)
[2023-04-29] MEDS: Ibuprofen 600 MG Tablet PO (23:54)
[2023-04-30 02:41] VITALS: BP 133/84; PULSE 69; RESP 16; O2SAT 97
[2023-04-30] MEDS: Acetaminophen 500 MG Tablet 1000 MG PO ×4 (04:31→22:26)
[2023-04-30] MEDS: Ibuprofen 600 MG Tablet PO ×3 (05:59→18:19)
--- NOTE | 2023-04-30 07:57 | PCM.PN.OB ---
Subjective Subjective Patient doing well without complaints. Tolerating PO. Ambulating and voiding without difficulty. Feeding well. Denies chest pain, shortness of breath, calf pain/swelling, fevers, chills, lightheadedness. Baby A Remington doing well. Baby B Nitish in SCN due to low body temp. Objective Data Objective Data Vital Signs: Vital Signs Temp Pulse Resp BP Pulse Ox O2 Del Method 97.7 F L 69 16 133/84 H 97 Room Air 04/29/23 20:22 04/30/23 02:41 04/30/23 02:41 04/30/23 02:41 04/30/23 02:41 04/30/23 02:41 Oxygen Delivery Method Room Air Weight: 253 lb 1.451 oz Body Mass Index (BMI) 36.3 Intake & Output: Intake and Output for Last 24 Hours 04/28/23 04/29/23 04/30/23 23:59 23:59 23:59 Intake Total 1260 / 1260 5166.33 / 5166.33 Output Total 1000 / 1000 2375 / 2375 600 / 600 Balance 260 / 260 2791.33 / 2791.33 -600 / -600 Lab / Micro Data 04/29/23 05:50 04/28/23 20:00 ROS Constitutional Constitutional: Reports systems reviewed and no addt'l complaints, except as documented Cardiovascular Cardiovascular: Reports as per HPI Respiratory/Chest Respiratory/Chest: Reports as per HPI Genitourinary Genitourinary: Reports as per HPI Physical Exam Const alert and oriented x3 HEENT normocephalic Eyes PERRL Neck full ROM Resp normal respiratory effort GI soft to palpation GI Narrative: FF below U. Dressing dry and intact Palpation: tender other (appropriately) Assessment & Plan (1) Status post delivery: COMMENT: GRISELDA ROY 04/28/23 Baby A Remington Baby Trish Talbert (2) Severe hypertension affecting : QUALIFIERS: Trimester: third trimester Qualified Code(s): O16.3 - Unspecified maternal hypertension, third trimester PLAN: Plan s/p LTCS PPD # 2 1. routine post care 2. breast feeding- support given 3. rh positive 4. rubella immune 5. BP stable
[2023-04-30 08:21] VITALS: BP 153/85; PULSE 57; RESP 16; TEMP 36.6; O2SAT 98
[2023-04-30 08:40] VITALS: BP 134/85; PULSE 61
[2023-04-30] MEDS: Enoxaparin 40 MG/0.4 ML Syringe SC (10:00)
[2023-04-30 13:56] VITALS: BP 146/84; PULSE 61; RESP 16; TEMP 37.1; O2SAT 97
--- NOTE | 2023-04-30 16:27 | NURSING ---
reviewed and agree with student charting that is used for educational and learning purposes. vitals were reported to primary nurse.
[2023-04-30 18:45] VITALS: BP 154/92; PULSE 66
[2023-04-30 20:30] VITALS: BP 147/84; PULSE 67; RESP 15; TEMP 36.2; O2SAT 98
[2023-04-30] MEDS: Labetalol 100 MG Tablet PO (21:13)
[2023-05-01] MEDS: Ibuprofen 600 MG Tablet PO ×2 (00:39→06:30)
[2023-05-01 02:10] VITALS: BP 126/79; PULSE 66; RESP 18; TEMP 37; O2SAT 96
[2023-05-01] MEDS: Acetaminophen 500 MG Tablet 1000 MG PO ×2 (05:05→11:15)
--- NOTE | 2023-05-01 07:53 | PCM.PN.OB ---
Subjective Subjective Patient doing well without complaints. Tolerating PO. Ambulating and voiding without difficulty. Feeding well. Denies chest pain, shortness of breath, calf pain/swelling, fevers, chills, lightheadedness. Baby Trish Talbert still in SCN. Can't maintain temp. Baby Vidya Macedo doing well Objective Data Objective Data Vital Signs: Vital Signs Temp Pulse Resp BP Pulse Ox O2 Del Method 98.6 F 66 18 126/79 H 96 Room Air 05/01/23 02:10 05/01/23 02:10 05/01/23 02:10 05/01/23 02:10 05/01/23 02:10 05/01/23 02:10 Oxygen Delivery Method Room Air Weight: 253 lb 1.451 oz Body Mass Index (BMI) 36.3 Intake & Output: Intake and Output for Last 24 Hours 04/29/23 04/30/23 05/01/23 23:59 23:59 23:59 Intake Total 5166.33 / 5166.33 Output Total 2375 / 2375 600 / 600 Balance 2791.33 / 2791.33 -600 / -600 Lab / Micro Data 04/29/23 05:50 04/28/23 20:00 Physical Exam Const alert and oriented x3 HEENT normocephalic Eyes PERRL Neck full ROM Resp normal respiratory effort GI soft to palpation GI Narrative: FF below U. Dressing dry and intact Palpation: tender other (appropriately) Assessment & Plan (1) Status post delivery: COMMENT: GRISELDA ROY 04/28/23 Baby Vidya Macedo Baby Trish Talbert (2) Severe hypertension affecting : QUALIFIERS: Trimester: third trimester Qualified Code(s): O16.3 - Unspecified maternal hypertension, third trimester COMMENT: labetalol (3) History of DVT (deep vein thrombosis): COMMENT: first twin . lovenox 6wk pp PLAN: Plan s/p LTCS PPD # 3 1. routine post care 2. breast feeding- support given 3. rh positive 4. rubella immune 5. BP stable, continue labetalol 6.Cont lovenox 6 wk pp 7. hotel status today
--- NOTE | 2023-05-01 07:58 | PCM.DC.SUM ---
Providers Date of Admission: 04/28/23 Primary Care Physician: Danilo Leal PA-C Reason For Visit: LABOR AND DELIVERY TWINS Diagnosis Discharge Diagnosis (1) Status post delivery: Status: Acute Code(s): Z98.891 - History of uterine scar from previous surgery (2) Severe hypertension affecting : Status: Acute Code(s): O16.9 - Unspecified maternal hypertension, unspecified trimester Qualifiers: Trimester: third trimester Qualified Code(s): O16.3 - Unspecified maternal hypertension, third trimester (3) History of DVT (deep vein thrombosis): Status: Acute Code(s): Z86.718 - Personal history of other venous thrombosis and embolism Plan s/p LTCS PPD # 3 1. routine post care 2. breast feeding- support given 3. rh positive 4. rubella immune 5. BP stable, continue labetalol 6.Cont lovenox 6 wk pp 7. hotel status today Medications at Discharge Home Medications docosahexaenoic acid 200 mg capsule ( DHA) mg PO 03/11/23 ferrous sulfate 325 mg (65 mg iron) tablet 325 mg PO DAILY 03/11/23 ibuprofen 800 mg tablet 800 mg PO Q8H PRN pain #30 tabs 04/28/23 enoxaparin 40 mg/0.4 mL subcutaneous syringe (Lovenox) 40 mg (0.4 mL) subcut DAILY #4 mL 04/30/23 labetalol 100 mg tablet 100 mg PO BID #60 tabs 04/30/23 Hospital Course Operations section Summary of Care Provided Hospital Course: Patient underwent section with routine recovery, return of normal bowel and bladder function. Ambulating, voiding and tolerating PO. Stable for discharge home POD #3. Weight / BMI Weight Weight: 253 lb 1.451 oz Body Mass Index (BMI) 36.3 ABG / Lab / Microbiology Data 04/29/23 05:50 04/28/23 20:00 D/C Instructions Discharge Diet: No restrictions May resume sexual activity in: 4-6 weeks Weight Bearing Status: Full weight bearing Call your doctor if your incision/area has: Continuous Slow Oozing, Sudden Increased Bleeding, Increased Pain/ Swelling, Increased Redness and Foul Smelling Discharge Call your doctor if you observe: Fever of 101 or Higher and Using more than 1 pad per hour Suture Line Care: Avoid Pulling/Pushing and Avoid Pinching/Bending Cleanse incision/area with: Soap & Water and Keep Dressing Clean & Dry Please Follow Up With: Odilia Henriquez DO When: Call [phone] to make an appointment for an incision check in 1-2 weeks. Meaningful Use Info Meaningful Use Diagnoses (Choose all that apply): None applicable Discharge Plan Admission Admit Date/Time: 04/28/23 20:25 Primary Reason for Your Visit: section Attending Provider: Odilia Henriquez Primary Care Provider: Danilo Leal Instructions Patient Instructions: Lovenox Prefilled Syringe 40 mg/0.4 mL, After a Discharge Orders/Prescriptions Prescriptions: New ibuprofen 800 mg tablet 800 mg PO Q8H PRN (Reason: pain) Qty: 30 0RF enoxaparin [Lovenox] 40 mg/0.4 mL syringe 40 mg subcut DAILY Qty: 4 1RF Rx Instructions: use for 6 weeks post labetalol 100 mg tablet 100 mg PO BID Qty: 60 2RF Continued DHA 200 mg capsule PO ferrous sulfate 325 mg (65 mg iron) tablet 325 mg PO DAILY Referrals / Follow Up: Danilo Leal PA-C [Primary Care Provider] - Disposition Disposition (needs filled in before D/C Order can be placed): Home, Self Care
[2023-05-01 09:46] VITALS: BP 130/83; PULSE 67; RESP 16; TEMP 37.2
[2023-05-01] MEDS: Enoxaparin 40 MG/0.4 ML Syringe SC (10:49)
[2023-05-01] MEDS: Senna/Docusate Sodium 1 Tablet PO (10:50)
[2023-05-01] MEDS: Labetalol 100 MG Tablet PO (10:51)
--- NOTE | 2023-05-01 14:44 | NURSING ---
1100- Teaching completed regarding Lovenox at home and questions answered
== END 2023-05-01 11:45 | disposition home or self-care (01) | DRG 787 ==
LOC: WPOUT 20:30 → WP 20:30
PROVIDERS: Admitting Provider Obstetrics & Gynecology; PCP Physician Assistant; Referring Provider Obstetrics & Gynecology; Visit Provider Obstetrics & Gynecology
DX: O32.1XX0 Maternal care for breech presentation, not applicable or unspecified (principal); O23.43 Unspecified infection of urinary tract in pregnancy, third trimester; O11.4 Pre-existing hypertension with pre-eclampsia, complicating childbirth; Z37.2 Twins, both liveborn; B95.1 Streptococcus, group B, as the cause of diseases classified elsewhere; O30.043 Twin pregnancy, dichorionic/diamniotic, third trimester; Z3A.37 37 weeks gestation of pregnancy; Z86.718 Personal history of other venous thrombosis and embolism
CPT/HCPCS: 59025; 59050; 82565; 84450; 84460; 84550; 85025; 85027; 86780; 86850; 86900; 86901; 99221; J7120; G0378; J2405